=== PATIENT | male | born 1960 | race Caucasian/White ===

== ENCOUNTER 2019-07-07 15:23 | Inpatient (IN) ==
[2019-07-07] MEDS ORDERED: NS 1,000 ML IV ONE ×3 (15:48→20:05)
[2019-07-07] MEDS ORDERED: ROCEPHIN 1 GM in NS 50 ML IV ONE (15:48)
--- NOTE | 2019-07-07 16:31 | Diag Imaging Result Doc PS360 ---
EXAM: US GB < RUQ (LIMITED) INDICATION: PCP sent for eval COMPARISON: None. FINDINGS: There are several layering stones in the gallbladder lumen. There is no evidence of gallbladder wall thickening or pericholecystic fluid. The common bile duct is normal in diameter. Sonographic Cruz's sign was reported to be negative. The liver echotexture is increased diffusely suggesting hepatic steatosis. There is a 1.8 cm hepatic cyst noted incidentally. Portal venous flow is hepatopetal. Much of the pancreas is obscured. The visualized portion is unremarkable. The visualized portion of the aorta and IVC are grossly unremarkable. The right kidney is grossly unremarkable. IMPRESSION: 1.Cholelithiasis. 2.Suggestion of hepatic steatosis. Electronically signed by Nader Peterson 07/07/2019 4:29 PM
--- NOTE | 2019-07-07 16:50 | Diag Imaging Result Doc PS360 ---
EXAM: CHEST-1 VIEW INDICATION: hypotension TECHNIQUE: One view COMPARISON: 07/18/2014 FINDINGS: There is blunting of the left costophrenic angle suggesting a trace effusion. There is a left basilar opacity indicating atelectasis and/or infiltrate. There is minimal linear atelectasis at the right lower lung zone. The cardiomediastinal silhouette and central vasculature are grossly unremarkable. IMPRESSION: Trace left effusion and adjacent atelectasis and/or infiltrate at the left lung base. Electronically signed by Nader Peterson 07/07/2019 4:48 PM
[2019-07-07 18:26] LABS: URINE SOURCE CLEAN CATCH
--- NOTE | 2019-07-07 18:34 | PROVIDER DOCUMENTATION ---
This chart was entered by Amie Escamilla Scribe, acting as scribe for Giovanny Doe MD. HPI-General Adult - General Source: patient - History of Present Illness -Gen Adult Nature of Presenting Problems: Patient is a 59 year old male who presents with loss of appetite, chills and nausea. States symptoms have been present for 3 weeks. Reports being seen by PCP last week and had blood work done. States having an gallbladder US 3 days ago. Denies fever and vomiting. Family reports patient has been hypotensive for the last week. Location of Pain/Injury: reports: none Quality of Pain: reports: none Severity: reports: mild Onset/Duration: reports: other (3 weeks) Timing: reports: still present Context/Activities at Onset: reports: light activity Associated Symptoms: reports: fever/chills (chills), loss of appetite, nausea. denies: vomiting Similar Symptoms Previously?: Yes Recently seen or treated by another doctor?: Yes <Giovanny Doe - Last Filed: 07/07/19 18:34> <Marcella Sweet - Last Filed: 07/07/19 20:19> - General Chief Complaint: SEPSIS ALERT - D Stated Complaint: nausia dr maddox sent over possible gallbladder Time Seen by Provider: 07/07/19 15:44 Allergies/Adverse Reactions: Patient Allergies Allergy/AdvReac Type Severity Reaction Status Date / Time No Known Allergies Allergy Verified 07/07/19 19:57 Home Medications: Home Medication List Medication Instructions Recorded Confirmed Last Taken Type Hydroxyzine HCl 25 mg PO Q6HR PRN 07/18/14 07/07/19 07/17/14 History ROSUVAstatin [Crestor] 10 mg PO QPM 07/18/14 07/07/19 07/17/14 History Amlodipine [Norvasc] 5 mg PO DAILY 07/07/19 07/07/19 Unknown History Folic Acid 1 mg PO DAILY 07/07/19 07/07/19 Unknown History Hydrochlorothiazide 12.5 mg PO DAILY 07/07/19 07/07/19 Unknown History Promethazine [Phenergan] 25 mg PO TID PRN 07/07/19 07/07/19 Unknown History Venlafaxine [Effexor] 75 mg PO DAILY 07/07/19 07/07/19 Unknown History Review of Systems - Adult - REVIEW OF SYSTEMS - ADULT Constitutional: reports: see HPI, chills. denies: fever Eyes: reports: no symptoms reported Ears, Nose, Mouth & Throat: reports: no symptoms reported Cardiovascular: reports: no symptoms reported Respiratory: reports: no symptoms reported Gastrointestinal: reports: see HPI, nausea, poor appetite. denies: abdominal pain, vomiting Genitourinary: reports: no symptoms reported Musculoskeletal: reports: no symptoms reported Integumentary: reports: no symptoms reported Neurological: reports: no symptoms reported Psychiatric: reports: no symptoms reported Endocrine: reports: no symptoms reported Hematologic/Lymphatic: reports: no symptoms reported Allergic/Immunologic: reports: no symptoms reported All Other Systems: Reviewed and Negative <Giovanny Doe - Last Filed: 07/07/19 18:34> Past History - Adult - PAST MEDICAL HISTORY-ADULT Review of Records: reports: Nursing Assessment Review, Medications Reviewed, Social history reviewed & non-contributory. Major Childhood Illnesses: reports: denies history Cardiovascular: reports: HTN, hyperlipidemia Respiratory: reports: denies history Gastrointestinal: reports: GERD Obstetrical/Gynecological: reports: denies history Genitourinary: reports: denies history Musculoskeletal: reports: denies history Neurological: reports: denies history Psychiatric: reports: denies history Endocrine/Immune: reports: denies history Other Conditions: reports: denies history - PRIOR SURGERIES/PROCEDURES Surgical/Procedure History: reports: reviewed, not pertinent, tonsillectomy - IMMUNIZATION STATUS Childhood Immunizations: See Nurse Assessment Flu Vaccine: See Nurse Assessment - FAMILY HISTORY Family History: reviewed, not pertinent - SOCIAL HISTORY Smoking: denies Substance Use: denies Living Situation: family <Giovanny Doe - Last Filed: 07/07/19 18:34> Physical Exam-General - PHYSICAL EXAM-ADULT Initial Vital Signs Reviewed: Yes - CONSTITUTIONAL General Appearance: alert, no apparent distress. negative: lethargic - RESPIRATORY Respiratory: chest non-tender, lungs clear, normal breath sounds. negative: wheezing - CARDIOVASCULAR Cardiovascular: regular rate, rhythm. negative: tachycardia, systolic murmur - GASTROINTESTINAL (ABDOMEN) Abdominal Exam: normal bowel sounds, non tender, soft. negative: guarding, rigid - MUSCULOSKELETAL Extremity: non-tender, normal inspection. negative: pedal edema - SKIN Integumentary: normal color, normal turgor, warm/dry. negative: diaphoresis, pallor - NEUROLOGIC Neurologic: grossly normal. negative: aphasia, facial droop - PSYCHIATRIC Psych/Mental Status: normal mood/affect, normal thought content, normal thought process, oriented x 3. negative: tearful <Giovanny Doe - Last Filed: 07/07/19 18:34> Progress - PLAN OF CARE/RESULTS Progress/Plan/Lab Results: Vital Signs - 8 hr 07/07/19 15:33 Temperature 97.5 F L Pulse Rate 93 H Respiratory Rate 18 Blood Pressure 74/53 O2 Sat by Pulse Oximetry 88 L Orders Category Date Time Status Cardiac Monitoring DIRECTED Care 07/07/19 15:42 Active IV Insertion ORDERED Care 07/07/19 15:42 Active Notify MD of + Sepsis Screen NOW Care 07/07/19 15:42 Active Notify Physician As Ordered Care 07/07/19 15:42 Active CHEST-1 VIEW [RAD] Stat Exams 07/07/19 15:42 Ordered US GB < RUQ (LIMITED) [US] Stat Exams 07/07/19 15:37 Ordered BLOOD CULTURE [BLDCUL] Stat Lab 07/07/19 15:42 Uncollected CBC WITH ELECTRONIC DIFF [HEME] Stat Lab 07/07/19 15:36 Uncollected CK PROFILE [SP CHEM] Stat Lab 07/07/19 15:36 Uncollected COMPREHENSIVE METABOLIC PANEL [CHEM] Stat Lab 07/07/19 15:36 Uncollected LACTATE, PLASMA [CHEM] Q3H Lab 07/07/19 15:45 Uncollected LACTATE, PLASMA [CHEM] Q3H Lab 07/07/19 18:45 Uncollected LACTATE, PLASMA [CHEM] Q3H Lab 07/07/19 21:45 Uncollected LIPASE [CHEM] Stat Lab 07/07/19 15:37 Uncollected PROTIME WITH INR [COAG] Stat Lab 07/07/19 15:42 Uncollected PTT [COAG] Stat Lab 07/07/19 15:42 Uncollected TROPONIN T HIGH SENSITIVITY Stat Lab 07/07/19 15:42 Uncollected URINALYSIS W/POSS RFLX CULT [URINALYSIS] Stat Lab 07/07/19 15:37 Uncollected Oxygen Device Stat Oth 07/07/19 15:42 Active Result Diagrams: 07/07/19 16:35 - XRAY 1 XRAY Study: Chest Impression: See EMR Report (EXAM: CHEST-1 VIEW INDICATION: hypotension TECHNIQUE: One view COMPARISON: 07/18/2014 FINDINGS: There is blunting of the left costophrenic angle suggesting a trace effusion. There is a left basilar opacity indicating atelectasis and/or infiltrate. There is minimal linear atelectasis at the right lower lung zone. The cardiomediastinal silhouette and central vasculature are grossly unremarkable. IMPRESSION: Trace left effusion and adjacent atelectasis and/or infiltrate at the left lung base. Electronically signed by Nader Peterson 07/07/2019 4:48 PM 07/07/19 1648 Interpreting Physician: Nader Peterson MD Dictated Date/Time: 07/07/19 1647 cc: Giovanny Doe MD; Anthony Maddox MD) - ULTRASOUND (By Radiology) 1 US Study: Gallbladder Impression: See EMR Report ( EXAM: US GB < RUQ (LIMITED) INDICATION: PCP sent for eval COMPARISON: None. FINDINGS: There are several layering stones in the gallbladder lumen. There is no evidence of gallbladder wall thickening or pericholecystic fluid. The common bile duct is normal in diameter. Sonographic Cruz's sign was reported to be negative. The liver echotexture is increased diffusely suggesting hepatic steatosis. There is a 1.8 cm hepatic cyst noted incidentally. Portal venous flow is hepatopetal. Much of the pancreas is obscured. The visualized portion is unremarkable. The visualized portion of the aorta and IVC are grossly unremarkable. The right kidney is grossly unremarkable. IMPRESSION: 1.Cholelithiasis. 2.Suggestion of hepatic steatosis. Electronically signed by Nader Peterson 07/07/2019 4:29 PM 07/07/19 1629 Interpreting Physician: Nader Peterson MD Dictated Date/Time: 07/07/19 1628 cc: Nick Melendez; Anthony Maddox MD) - CHANGE OF SHIFT REPORT (ED Provider) 1 Report Given and Care Transferred to:: Dr Sweet Time of Transfer: 19:00 Items Pending: Labs <Giovanny Doe - Last Filed: 07/07/19 18:34> - PLAN OF CARE/RESULTS Progress/Plan/Lab Results: Vital Signs - 8 hr 07/07/19 15:33 07/07/19 18:05 07/07/19 18:31 Temperature 97.5 F L Pulse Rate 93 H 86 68 Respiratory Rate 18 16 18 Blood Pressure 74/53 76/43 76/39 O2 Sat by Pulse Oximetry 88 L 100 90 L 07/07/19 18:40 Temperature 97.6 F Pulse Rate 69 Respiratory Rate 18 Blood Pressure 84/55 O2 Sat by Pulse Oximetry 90 L Laboratory Results - last 24 hr 07/07/19 07/07/19 07/07/19 16:35 16:35 16:35 WBC 8.96 RBC 4.60 L Hgb 13.1 L Hct 39.5 L MCV 85.9 MCH 28.5 MCHC 33.2 RDW Std Deviation 14.4 Plt Count 63 L MPV 13.7 H Immature Gran % (Auto) 1.6 H Neut % (Auto) 63.6 Lymph % (Auto) 6.[address] [place] % (Auto) 26.3 H Eos % (Auto) 0.9 Baso % (Auto) 0.7 Immature Gran # (Auto) 0.14 H Neut # (Auto) 5.70 Lymph # (Auto) 0.[address] [place] # (Auto) 2.36 H Eos # (Auto) 0.08 Baso # (Auto) 0.06 Segmented Neutrophils 71 Band Neutrophils 1 Lymphocytes 6 L Monocytes 14 H Eosinophils 2 Atypical Lymphocytes 6.0 PT 18.1 H INR 1.47 PTT (Actin FS) 39.0 Sodium 125 L Potassium 3.8 Chloride 91 L Carbon Dioxide 18 L Anion Gap 16 BUN 25 H Creatinine 1.2 Estimated GFR/1.73 m2 > 60 BUN/Creatinine Ratio 21 Glucose 135 H Calculated Osmolality 258 Calcium 7.5 L Total Bilirubin 1.87 H AST 35 H ALT 23 Alkaline Phosphatase 184 H Creatine Kinase 18 L Troponin T High Sens Total Protein 5.0 L Albumin 2.3 L Globulin 2.7 Albumin/Globulin Ratio 0.9 Lipase 8 L Plasma Lactate Urine Source Urine Color Urine Turbidity Urine pH Ur Specific [place] Urine Protein Ur Glucose (Stick) Ur Ketones (Stick) Urine Blood Urine Nitrite Urine Bilirubin Urobilinogen Dipstick Urine Leukocytes Urine WBC (Auto) Urine RBC (Auto) U Epithel Cells (Auto) Urine Bacteria (Auto) Urine Crystals Small Round Cells Urine Casts Urine Yeast-like Cells 07/07/19 07/07/19 07/07/19 16:35 16:35 17:22 WBC RBC Hgb Hct MCV MCH MCHC RDW Std Deviation Plt Count MPV Immature Gran % (Auto) Neut % (Auto) Lymph % (Auto) [place] % (Auto) Eos % (Auto) Baso % (Auto) Immature Gran # (Auto) Neut # (Auto) Lymph # (Auto) [place] # (Auto) Eos # (Auto) Baso # (Auto) Segmented Neutrophils Band Neutrophils Lymphocytes Monocytes Eosinophils Atypical Lymphocytes PT INR PTT (Actin FS) Sodium Potassium Chloride Carbon Dioxide Anion Gap BUN Creatinine Estimated GFR/1.73 m2 BUN/Creatinine Ratio Glucose Calculated Osmolality Calcium Total Bilirubin AST ALT Alkaline Phosphatase Creatine Kinase Troponin T High Sens 7 Total Protein Albumin Globulin Albumin/Globulin Ratio Lipase Plasma Lactate 3.0 H Urine Source CLEAN CATCH Urine Color YELLOW Urine Turbidity CLEAR Urine pH 5.5 Ur Specific [place] 1.020 Urine Protein TRACE A Ur Glucose (Stick) NEGATIVE Ur Ketones (Stick) NEGATIVE Urine Blood NEGATIVE Urine Nitrite NEGATIVE Urine Bilirubin SMALL A Urobilinogen Dipstick 8 A Urine Leukocytes NEGATIVE Urine WBC (Auto) <10 Urine RBC (Auto) <10 U Epithel Cells (Auto) <10 Urine Bacteria (Auto) NEGATIVE Urine Crystals NONE SEEN Small Round Cells NONE SEEN Urine Casts NONE SEEN Urine Yeast-like Cells NONE SEEN Orders Category Date Time Status Cardiac Monitoring DIRECTED Care 07/07/19 15:42 Active IV Insertion ORDERED Care 07/07/19 15:42 Completed Notify MD of + Sepsis Screen NOW Care 07/07/19 15:42 Active Notify Physician As Ordered Care 07/07/19 15:42 Active CHEST-1 VIEW [RAD] Stat Exams 07/07/19 15:42 Completed US GB < RUQ (LIMITED) [US] Stat Exams 07/07/19 15:37 Completed BLOOD CULTURE [BLDCUL] Stat Lab 07/07/19 16:55 Results CBC WITH ELECTRONIC DIFF [HEME] Stat Lab 07/07/19 16:35 Completed CK PROFILE [SP CHEM] Stat Lab 07/07/19 16:35 Completed COMPREHENSIVE METABOLIC PANEL [CHEM] Stat Lab 07/07/19 16:35 Completed LACTATE, PLASMA [CHEM] Lab 07/07/19 16:35 Completed LACTATE, PLASMA [CHEM] Lab 07/07/19 18:45 Uncollected LACTATE, PLASMA [CHEM] Lab 07/07/19 21:45 Uncollected LIPASE [CHEM] Stat Lab 07/07/19 16:35 Completed PROTIME WITH INR [COAG] Stat Lab 07/07/19 16:35 Completed PTT [COAG] Stat Lab 07/07/19 16:35 Completed TROPONIN T HIGH SENSITIVITY Stat Lab 07/07/19 16:35 Completed URINALYSIS W/POSS RFLX CULT [URINALYSIS] Stat Lab 07/07/19 17:22 Completed URINE MANUAL MICROSCOPIC [URINALYSIS] Stat Lab 07/07/19 17:22 Completed 0.9% Sodium Chloride Inj [Ns] 1,000 ml Med 07/07/19 15:48 Discontinued IV 999 mls/hr 0.9% Sodium Chloride Inj [Ns] 1,000 ml Med 07/07/19 18:32 Discontinued IV 999 mls/hr 0.9% Sodium Chloride Inj [Ns] 1,000 ml Med 07/07/19 20:05 Active IV 999 mls/hr CefTRIAXONE [Rocephin] 1 gm Med 07/07/19 15:48 Discontinued 0.9% Sodium Chloride Inj [Ns] 50 ml IV NOW O2 Per Protocol Stat Oth 07/07/19 18:33 Active Oxygen Device Stat Oth 07/07/19 15:42 Active Result Diagrams: 07/07/19 16:35 07/07/19 16:35 - CHANGE OF SHIFT REPORT (ED Provider) 2 Report Given and Care Transferred to:: Assumed care of patient at shift change from Dr. Doe. Time of Transfer: 19:00 Items Pending: Labs, Other (dispo) <Marcella Sweet - Last Filed: 07/07/19 20:19> Departure - Departure Certified Medical Emergency: Emergent <Giovanny Doe - Last Filed: 07/07/19 18:34> - Departure Date of Disposition Decision: 07/07/19 Time of Disposition Decision: 20:19 Certified Medical Emergency: Emergent - Critical Care Note This patient required my direct & personal management of CC.: No <Marcella Sweet - Last Filed: 07/07/19 20:19> - Departure DIAGNOSIS: Hypoxemia LLL pneumonia Qualifiers: Pneumonia type: due to unspecified organism Qualified Code(s): J18.1 - Lobar pneumonia, unspecified organism Sepsis Qualifiers: Sepsis type: sepsis due to unspecified organism Sepsis acute organ dysfunction status: unspecified Qualified Code(s): A41.9 - Sepsis, unspecified organism Cholelithiasis Qualifiers: Cholelithiasis location: gallbladder Cholecystitis acuity: acute Disposition: ADMITTED INPATIENT 09 Condition: Stable Referrals and Follow-Ups: Anthony Maddox MD [Primary Care Provider] - Attestation - Physician/ JOHN Attestation The physician spent face to face time with patient:: Yes Advanced Practice Provider documentation review:: Supervising physician onsite and consulted in the evaluation and care of this patient. The physician did have a face to face encounter with the patient. <Giovanny Doe - Last Filed: 07/07/19 18:34> - Physician/ JOHN Attestation Patient care was provided by Advanced Practice Provider:: No The physician spent face to face time with patient:: Yes Advanced Practice Provider documentation review:: Supervising physician onsite and consulted in the evaluation and care of this patient. The physician did have a face to face encounter with the patient. <Marcella Sweet - Last Filed: 07/07/19 20:19> This chart was documented by the indicated scribe, (Amie Escamilla Scribe) and accurately reflects the services I performed and decisions made by me, Giovanny Doe MD, as attested by the provider's signature.
[2019-07-07 18:42] LABS: BILIRUBIN URINE SMALL (NEGATIVE); BLOOD URINE NEGATIVE (NEGATIVE); COLOR YELLOW; GLUCOSE URINE NEGATIVE (NEGATIVE); KETONE URINE NEGATIVE (NEGATIVE); LEUKOCYTES URINE NEGATIVE (NEGATIVE); NITRITE URINE NEGATIVE (NEGATIVE); PH URINE 5.5; PROTEIN URINE TRACE mg/dL (NEGATIVE); TURBIDITY URINE CLEAR (CLEAR); UROBILINOGEN URINE 8 mg/dL (NORMAL)
[2019-07-07 18:51] LABS: UR EPITHELIAL CELLS <10 /HPF (<10); URINE BACTERIA NEGATIVE /HPF; URINE RBC <10 /HPF (<10); URINE WBC <10 /HPF (<10)
[2019-07-07 18:54] LABS: BASO# 0.06 X1000 (0.0-0.2); BASO% 0.7 % (0.0-0.8); EOS# 0.08 X1000 (0.0-0.7); EOS% 0.9 % (0.0-10.0); HEMATOCRIT 39.5 % (42.0-52.0); HEMOGLOBIN 13.1 g/dL (14.0-18.0); IMM GRAN# 0.14 X1000 (0.0-0.04); IMM GRAN% 1.6 % (0.0-0.5); LYMPH# 0.62 X1000 (1.2-3.4); LYMPH% 6.9 % (20.5-51.1); MCH 28.5 PG (27-31); MCHC 33.2 g/dL (33-37); MCV 85.9 FL (81-99); MONO# 2.36 X1000 (0.11-0.59); MONO% 26.3 % (1.7-9.3); MPV 13.7 FL (7.4-10.4); NEUT% 63.6 % (42.2-75.2); PLT 63 X1000 (130-400); RDW 14.4 % (11.5-14.5); WBC 8.96 X1000 (4.8-10.8)
[2019-07-07 18:59] LABS: AGAP 16; ALB/GLOB RATIO 0.9; ALBUMIN 2.3 g/dL (3.5-5.0); ALKALINE PHOSPHATASE 184 U/L (32-122); BUN 25 mg/dL (8-22); CALCIUM 7.5 mg/dL (8.8-10.2); CHLORIDE 91 mmol/L (98-107); CK PROFILE 18 U/L (24-204); COSMO 258; CREATININE 1.2 mg/dL (0.7-1.2); ESTIMATED GFR > 60; GLUCOSE 135 mg/dL (70-104); GOT 35 U/L (10-34); GPT 23 U/L (10-44); LIPASE 8 U/L (13-60); POTASSIUM 3.8 mmol/L (3.5-5.1); SODIUM 125 mmol/L (136-145); TCO2 18 mmol/L (25-35); TOTAL BILIRUBIN 1.87 mg/dL (0.20-1.00)
[2019-07-07 19:04] LABS: INR 1.47; PROTIME 18.1 Seconds (11.0-16.0)
[2019-07-07 19:29] LABS: URINE CASTS NONE SEEN; URINE CRYSTALS NONE SEEN; URINE SMALL ROUND CELLS NONE SEEN; URINE YEAST NONE SEEN
[2019-07-07 19:57] LABS: BANDS 1 % (0-1); EOS 2 % (1-10); LYMPHS 6 % (21-51); MONO 14 % (1-9); SEGS 71 % (42-75)
--- NOTE | 2019-07-07 22:06 | HISTORY AND PHYSICAL ---
REASON FOR ADMISSION: Hypotension for the last couple of days and lethargy for 2 to 3 weeks. HISTORY OF PRESENT ILLNESS: Mr. Eliot Sánchez is a 59-year-old man with past medical history of hypertension, hyperlipidemia, possible peripheral arterial disease, depression. He reports that for the last 3 weeks he has been feeling weak with intermittent chills but no fever. He also reports nausea and decreased appetite. A week later he developed a cough, nonproductive but not associated shortness of breath. He denies emphatically any fever. He came in today primarily because he was feeling weak and lethargic, and he noticed that his blood pressure for the last couple of days has been 70/30 systolic. I did review his old records from before, and I did notice that he had had a similar problem like this in 2015. This leads me to believe that this might be something chronic in nature. The patient denies any vomiting, diarrhea or blood loss. The patient denies any recent change in home medications, but oddly enough, he has been taking his antihypertensives despite having low blood pressure. No PND, orthopnea, chest pain, or additional cardiorespiratory complaints. No abdominal pain. REVIEW OF SYSTEMS: Twelve-system review was done. Positive findings per HPI. Patient admits to having constipation. ALLERGIES: No allergies. HOME MEDICATIONS: Include the following: Norvasc 5 mg daily, folic acid 1 mg daily, hydrochlorothiazide 12.5 mg daily, hydroxyzine 25 mg q.6 p.r.n., Phenergan 25 mg t.i.d. p.r.n., Crestor 10 mg daily, Effexor 75 mg daily. SOCIAL HISTORY: Lives with . Does not smoke. Drinks half a bottle of wine every day. Last drink was 2 weeks ago. FAMILY HISTORY: Notable for heart disease and diabetes in first-degree relatives. SURGICAL HISTORY: Had tonsillectomy and sinus surgery. LABORATORY WORK: White count 8000, hemoglobin and hematocrit 13 and 39, platelets 63,000. Sodium is 125, BUN is 25, creatinine 1.2, glucose 135, calcium 7.5, total bilirubin is 1.8, AST 35, ALT 23, alkaline phosphatase 184, lactate 3.0. PT is 18. INR is 1.4, small bilirubin, positive urobilinogen. IMAGING: Abdominal ultrasound ordered by primary care provider showed cholelithiasis and hepatic steatosis. There is no actual mention of splenic size. Chest film showed trace left effusion with adjacent left lower lobe infiltrate PHYSICAL EXAMINATION: VITAL SIGNS: Temperature 97.6 degrees, heart rate 69, respiratory rate 18, blood pressure is 84/55, and O2 sats 90% on 2 L. GENERAL: A middle-aged, man who is acutely ill looking. He is alert and oriented to person and time. Normal mood and affect. HEAD: Normocephalic, atraumatic. EYES: KELSY, EOMI. He is anicteric. Not pale. ENT EXAM: Grossly normal. NECK: Supple. No JVD or carotid bruit. No thyromegaly. CHEST: Bibasilar crepitations heard. No wheezes. Decreased entry in both lung mao. CARDIOVASCULAR: First and second sounds heard. No gallops or rubs. Regular. ABDOMEN: Full, soft, nontender. No organomegaly. Bowel sounds are normal. RECTAL EXAM: Deferred at this time. EXTREMITIES: Diminished pulses bilaterally, but they are symmetrical, regular. No edema, clubbing or peripheral cyanosis. NEUROLOGIC: No gross focal deficits. No tremors. SKIN: Intact. No breakdown, lesion or erythema. SKIN EXAM: Grossly normal. ASSESSMENT: 1. Sepsis, probably secondary to pneumonia. 2. Thrombocytopenia, etiology yet to be determined. Cannot rule out the toxic effects of alcoholic ingestion. 3. Hyponatremia. ? hydrochlorothiazide. Cannot rule out adrenal insufficiency in view of chronic hypotension. 4. Left lower lobe pneumonia. 5. Incidental cholelithiasis. 6. Persistent hypotension probably secondary to unnecessary antihypertensives. Cannot rule out diuretic effect and the possibility of adrenal insufficiency. PLAN: We will aggressively resuscitate patient per sepsis protocol. We will await cultures. Continue with antibiotic regimen for community-acquired pneumonia. We will consult cable driller in view of thrombocytopenia. Ordered a CBC to be repeated in blue top to rule out platelet clumping. There is no comment on splenic size, which could have explained sequestration as a cause. If thrombocytopenia persists, consider doing abdomen CT to rule out not just only splenomegaly, but if there are any underlying liver problems or lymphoproliferative disorder. Of note, I am concerned that this patient may have underlying liver issues based on the fact that not only are the transaminases slightly elevated, but the patient's PT/INR is also elevated suggesting some liver dysfunction. Albumin is also low. We will do workup for hyponatremia, which includes urine osmolality, TSH, amongst other things. Discontinue hydrochlorothiazide. Continue antihypertensives. I have ordered a cortisol level in the morning. This needs to be followed. I have ordered a CT of the thorax because the patient 5 years ago was listed as having COPD. He has also worked 25 years, exposed to chemicals so I am going to order a CT to rule out interstitial lung disease. Also we will do anemia workup to further evaluate thrombocytopenia. Patient needs to be observed closely for alcohol withdrawal even though he states that 2 weeks ago was his last drink. cc: MD Anthony Molina MD
[2019-07-07] MEDS ORDERED: NS 1,000 ML IV SCH (22:43)
[2019-07-07] MEDS ORDERED: M.V.I.-12 10 ML, FOLIC ACID 1 MG, MAGNESIUM SULFATE 1 GM, THIAMINE 100 MG in NS 1,000 ML IV ONE (22:43)
[2019-07-07] MEDS ORDERED: DULCOLAX PO ONE (22:43)
[2019-07-07] MEDS ORDERED: LACTULOSE PO PRN (22:43)
[2019-07-07 23:03] LABS: RETIC% 3.47 % (0.8-2.1); RETIC-HE 29.5 PG (28.2-36.6)
[2019-07-07 23:24] LABS: INR 1.4; PROTIME 17.4 Seconds (11.0-16.0)
[2019-07-07 23:25] LABS: PTT 40.5 Seconds (22.3-41.8)
[2019-07-07 23:37] LABS: BASO# 0.04 X1000 (0.0-0.2); BASO% 0.5 % (0.0-0.8); EOS# 0.11 X1000 (0.0-0.7); EOS% 1.3 % (0.0-10.0); HEMATOCRIT 37.9 % (42.0-52.0); HEMOGLOBIN 12.7 g/dL (14.0-18.0); IMM GRAN# 0.05 X1000 (0.0-0.04); IMM GRAN% 0.6 % (0.0-0.5); LYMPH% 7.3 % (20.5-51.1); MCHC 33.5 g/dL (33-37); MCV 86.5 FL (81-99); MONO# 1.72 X1000 (0.11-0.59); NEUT# 5.68 X1000 (1.4-6.5); NEUT% 69.3 % (42.2-75.2); RBC 4.38 XMIL (4.7-6.1); RDW 14.6 % (11.5-14.5)
[2019-07-07 23:38] LABS: PLT 63 X1000 (130-400)
[2019-07-07] MEDS: CRESTOR PO SCH (23:59)
[2019-07-08 00:01] LABS: BASO# 0.03 X1000 (0.0-0.2); BASO% 0.4 % (0.0-0.8); EOS# 0.06 X1000 (0.0-0.7); EOS% 0.7 % (0.0-10.0); HEMATOCRIT 39.4 % (42.0-52.0); IMM GRAN# 0.08 X1000 (0.0-0.04); LYMPH% 8.5 % (20.5-51.1); MCH 28.6 PG (27-31); MCV 86.8 FL (81-99); MPV 12.2 FL (7.4-10.4); NEUT# 5.96 X1000 (1.4-6.5); NEUT% 72.4 % (42.2-75.2); PLT 67 X1000 (130-400); RBC 4.54 XMIL (4.7-6.1); RDW 14.6 % (11.5-14.5); WBC 8.23 X1000 (4.8-10.8)
[2019-07-08] MEDS: DOXYCYCLINE 100 MG in NS 250 ML IV SCH ×3 (00:02→22:20)
[2019-07-08 00:16] LABS: AGAP 14; ALB/GLOB RATIO 0.8; ALBUMIN 2.2 g/dL (3.5-5.0); ALKALINE PHOSPHATASE 175 U/L (32-122); BUN 20 mg/dL (8-22); CHLORIDE 101 mmol/L (98-107); CK PROFILE 12 U/L (24-204); COSMO 272; CREATININE 1.1 mg/dL (0.7-1.2); ESTIMATED GFR > 60; GLUCOSE 128 mg/dL (70-104); GOT 33 U/L (10-34); GPT 22 U/L (10-44); POTASSIUM 3.8 mmol/L (3.5-5.1); SODIUM 134 mmol/L (136-145); TCO2 19 mmol/L (25-35); TOTAL BILIRUBIN 1.65 mg/dL (0.20-1.00); TOTAL PROTEIN 4.8 g/dL (6.3-8.3)
[2019-07-08] MEDS ORDERED: CALCIUM GLUCONATE 1 GM in NS 50 ML IV ONE (00:39)
[2019-07-08] MEDS: TYLENOL PO PRN (01:08)
[2019-07-08] MEDS: DUONEB (A & A) INH SCH ×4 (03:45→22:06)
--- NOTE | 2019-07-08 07:11 | Diag Imaging Result Doc PS360 ---
EXAM: CT THORAX W/O CONTRAST 07/07/2019 HISTORY: PNA VS ILD TECHNIQUE: This exam was performed using automated exposure control, adjustment of mA or kV according to patient size, and/or use of iterative reconstruction technique. COMMENT: There is apical pleural thickening and fibrosis particularly on the left. There are bilateral pleural effusions, slightly larger on the left than the right. There is some atelectasis or pneumonia present in both lower lobes and the right middle lobe. Some of this is presumably due to compression from the effusions. There is platelike atelectasis in the lingula. There is a somewhat irregular nodule, measuring over 7 mm in diameter, present in the left upper lobe on image 47. This may be faintly calcified. There is some groundglass opacity surrounding the nodule. There are no previous studies available for comparison. Follow-up examinations are recommended in this regard. There are calcified nodes in the aorticopulmonary window and both catina as well as the subcarina. The aorta is not distended. There is atherosclerotic calcification in the left anterior descending coronary artery. There is a lucent lesion in the posterior right hepatic lobe measuring 2.2 cm in diameter. This may be a cyst, the CT density being less than 8 Hounsfield units, however the borders are somewhat indistinct. There is a smaller lucency anteriorly on image 114. There are numerous small calcified gallstones. Further evaluation of the abdomen with intravenous contrast may be desirable. The regional skeleton appears to be intact. IMPRESSION: 1. Bilateral pleural effusions. 2. Bibasilar atelectasis versus pneumonia. 3. Nonspecific left upper lobe nodule. Follow-up imaging is recommended. 4. Lucent hepatic lesions of uncertain significance. Advise further evaluation with contrast. 5. Cholelithiasis. Other nonacute findings as described above. Electronically signed by Rainer Edmonds 07/08/2019 7:08 AM
[2019-07-08 08:40] LABS: BASO# 0.03 X1000 (0.0-0.2); BASO% 0.4 % (0.0-0.8); EOS# 0.04 X1000 (0.0-0.7); EOS% 0.5 % (0.0-10.0); HEMATOCRIT 33.6 % (42.0-52.0); HEMOGLOBIN 10.9 g/dL (14.0-18.0); IMM GRAN# 0.05 X1000 (0.0-0.04); IMM GRAN% 0.6 % (0.0-0.5); LYMPH# 0.68 X1000 (1.2-3.4); LYMPH% 8.8 % (20.5-51.1); MCH 28.2 PG (27-31); MCHC 32.4 g/dL (33-37); MCV 86.8 FL (81-99); MONO# 1.71 X1000 (0.11-0.59); NEUT# 5.26 X1000 (1.4-6.5); NEUT% 67.7 % (42.2-75.2); PLT 56 X1000 (130-400); RBC 3.87 XMIL (4.7-6.1); RDW 14.5 % (11.5-14.5); WBC 7.77 X1000 (4.8-10.8)
[2019-07-08 08:44] LABS: AGAP 13; BUN 19 mg/dL (8-22); CALCIUM 7.5 mg/dL (8.8-10.2); CHLORIDE 100 mmol/L (98-107); COSMO 268; CREATININE 0.9 mg/dL (0.7-1.2); ESTIMATED GFR > 60; GLUCOSE 153 mg/dL (70-104); POTASSIUM 3.5 mmol/L (3.5-5.1); SODIUM 131 mmol/L (136-145); TCO2 18 mmol/L (25-35); TOTAL IRON 22 ug/dL (53-167)
[2019-07-08] MEDS: EFFEXOR PO SCH (09:11)
[2019-07-08] MEDS: FOLIC ACID PO SCH (09:11)
[2019-07-08] MEDS ORDERED: NS 500 ML IV ONE (09:19)
[2019-07-08 09:20] LABS: FERRITIN 1530 ng/mL (30-400)
[2019-07-08] MEDS: NS 1,000 ML IV SCH ×2 (10:26→21:34)
--- NOTE | 2019-07-08 11:28 | PROGRESS NOTE ---
DATE: 07/08/2019 SUBJECTIVE: As per the patient, he has been sick for the past 3 weeks. It looks like he was having hypotension, but he was still taking his blood pressure medication, amlodipine and hydrochlorothiazide, and apparently he has been lethargic. He has been coughing on and off, but apparently not that much, and he has some abdominal discomfort, and generalized weakness. As per the patient and the , which is at the bedside, he is not moving too much for the last 2 to 3 weeks. On the other hand, since then, he has not been drinking alcohol. He drinks on a daily basis at least one-half bottle and even 1 bottle of wine every day, it looks like during the night, also as per the patient, he does not urinate during the day too much, but mostly during the night, but he is taking his hydrochlorothiazide also at nighttime. Ultrasound showed cholelithiasis. He has multiple stones in the gallbladder lumen and also hepatic steatosis. CT scan of the chest showed bilateral pleural effusion, a bibasilar atelectasis versus pneumonia, nonspecific left upper lobe nodule, and probably we need to do a CT scan in the future to monitor this nodule, but also, he has some lucent hepatic lesions of uncertain significance, and we will do a CT with contrast in the future here. His blood pressure upon admission was in the 70s, after fluid increased to the 100s, and actually at 4 a.m. was 139/72, now dropped to the high 80s. I will bolus him with 500 mL of fluid, and I will continue with IV fluids for now. OBJECTIVE: Vital Signs: Temperature 97.9 degrees, pulse 90, respiratory rate 15, blood pressure 88/50, oxygen saturation 95% on 4 liters of nasal cannula. HEENT: Head normocephalic. No trauma. PERRLA. Neck: Supple. No JVD. No masses. Central trachea. Chest: Decreased breath sounds at the bases with some crepitus bilaterally. Abdomen: Soft. It is protuberant. I would say that it is slightly to moderately distended. Positive bowel sounds. It is nontender to palpation. Extremities: No edema, no clubbing, no cyanosis. Neurological: The patient is awake, alert. He is oriented. No focal deficits. LABORATORY: WBC 7.7, hemoglobin 10.9, hematocrit 33.6, platelets 56,000. Sodium 131, potassium 3.5, chloride 100, bicarbonate 18, BUN 19, creatinine 0.9, glucose 153, calcium 7.5, iron 22, ferritin is 1530. ASSESSMENT AND PLAN: 1. Sepsis, probably due to pneumonia. The blood pressure improved, but now it is a little bit low in the high 80s. Kidney function seems to be better. He came in with a creatinine 1.2, now is 0.9. We will continue with intravenous fluids. We will continue with antibiotics. I will get a CT of the abdomen with contrast, probably tomorrow. The patient seems to be feeling a little bit better. 2. Thrombocytopenia, probably this is chronic. I do believe this is related to alcohol abuse. We will monitor this closely. Probably, he will need to follow up as an outpatient with Hematology/Oncology Department since he is also anemic. 3. Likely left lower lobe pneumonia. Continue with antibiotics. 4. Hyponatremia. He has been using hydrochlorothiazide at home. Cortisol level is fine. I will continue with normal saline for now. I will stop the hydrochlorothiazide. I am not quite sure if he needs to take the medication anymore. 5. Cholelithiasis. We will monitor for now. No abdominal pain. 6. Hypotension, even though this patient was having low blood pressure at home, he was taking his blood pressure medication. I talked to him and the at the bedside and instructed them to stop it if he is having these kind of problems. I wonder if he needs to take blood pressure medication though. 7. Nonspecific left upper lobe nodule. Followup imaging is recommended in 4 to 6 weeks. 8. Lucent hepatic lesions of uncertain significance. I will try to do a CT scan of the abdomen and pelvis during this hospitalization. cc: Mendez Morales MD
[2019-07-08] MEDS: CARAFATE LIQUID PO PRN (16:32)
[2019-07-08] MEDS: SODIUM CHLORIDE 0.9% INJ SCH (16:33)
[2019-07-08] MEDS: PROTONIX IV SCH (16:33)
[2019-07-08] MEDS ORDERED: LEVOPHED 8 MG in D5 1/2 NS 250 ML IV SCH (16:45)
[2019-07-08] MEDS ORDERED: ROCEPHIN 1 GM in NS 50 ML IV SCH (17:00)
--- NOTE | 2019-07-08 17:54 | HEMO/ONC CONSULTATION ---
DATE: 07/08/2019 REASON FOR CONSULTATION: Thrombocytopenia. HISTORY OF PRESENT ILLNESS: Mr. Sánchez is a 59-year-old male with a past history of hypertension, hyperlipidemia, PAD, and depression who reports for the last 3 weeks that he has been feeling weak with nausea and a decreased appetite. He then developed a cough, but denies dyspnea or phlegm. He denies any fever. He came to the ER yesterday stating that he noticed for the last 3 days that his blood pressure was 70/30. The patient denies vomiting, diarrhea, or blood loss. He denies any recent changes to his medical history, home medications. The patient states he has been taking his prescribed antihypertensives despite having low blood pressure. He denies any chest pain. This afternoon he is being transferred to the ICU to be on pressors due to persistent hypotension PAST MEDICAL HISTORY: Includes hypertension, hyperlipidemia, PAD, and depression. PAST SURGICAL HISTORY: Tonsillectomy and sinus surgery. SOCIAL HISTORY: The patient does not smoke. He states he drinks a half a bottle of wine every day. His last drink was 2 weeks ago. ALLERGIES: No known drug allergies. HOME MEDICATIONS: Include Norvasc, folic acid, hydrochlorothiazide, hydroxyzine, Phenergan, Crestor, and Effexor. REVIEW OF SYSTEMS: This morning, the patient had no pertinent complaints. PHYSICAL EXAMINATION: Vital Signs: Temperature 97.7 degrees, pulse rate 112, respiratory rate 25, pressure 98/54, O2 saturation 95% on room air. The patient is in 0/10 pain. General: The patient was in no acute distress. He appeared comfortable. HEENT: Sclera anicteric. PERRLA. Oral mucosa dry. Cardiovascular: Normal S1, S2. Heart rate and rhythm regular. Respiratory: Lung sounds are clear. Normal respiratory effort. Abdomen: Mildly protuberant, soft, nontender. No hepatosplenomegaly noted. Bowel sounds are normal. Extremities: No lower extremity edema noted. Lymphatic: No lymph nodes noted to neck, axilla area. Neurological: Awake, alert, and oriented x3. No focal motor deficits noted. LABORATORY: WBC 7.77, hemoglobin 10.9, hematocrit 33.6, platelet count 56,000, reticulocyte count 3.47. Sodium 131, potassium 3.5, calcium 7.5. Iron 22, ferritin 1,530. Total bilirubin 1.65, alkaline phosphatase 175, LDH 196, plasma lactate 2.7. Vitamin B12 622, folate 19.9. TSH 1.42. Cortisol 24.8. RADIOLOGY: Chest CT: 1. Bilateral pleural effusions. 2. Bibasilar atelectasis versus pneumonia. 3. Nonspecific left upper lobe nodule. 4. Lucent hepatic lesions of uncertain significance. 5. Cholelithiasis. Chest x-ray: Trace left effusion and adjacent atelectasis and/or infiltrate at the left lung base. Abdominal ultrasound: 1. Cholelithiasis. 2. Suggestion of hepatic steatosis. We will ask for spleen size if available. ASSESSMENT: 1. Sepsis, probably secondary to pneumonia. 2. Thrombocytopenia, etiology undetermined. 3. Hypotension. PLAN: Regarding the patient's thrombocytopenia, we have added a few more labs to evaluate. Continue medical management for pneumonia and hypotension. Chronic alcohol use can certainly be a contributor to thrombocytopenia. We do request radiology measure his spleen, if that is available on his recent abdominal ultrasound. We will continue to monitor and evaluate as the patient's progress pans out. Dictated by JANNETTE Johnson for Laron Brewster MD Patient seen and examined. Thrombocytopenia multifactorial. Appears to be due to peripheral destruction. Don't think it is DIC at this time. Evaluate spleen size. Labs ordered. Will follow with you. Thanks. Laorn Brewster MD cc: Laron Brewster MD [facility]
--- NOTE | 2019-07-08 20:23 | Diag Imaging Result Doc PS360 ---
EXAM: CHEST-PORTABLE 07/08/2019 HISTORY: SOB TECHNIQUE: AP portable at 2013 COMMENT: There is alveolar opacity in the left lower lobe which is worse than on 07/07/2019. There is also ill-defined opacity over the right lower lobe. IMPRESSION: Pneumonia particularly in the left lower lobe. Electronically signed by Rainer Edmonds 07/08/2019 8:21 PM
[2019-07-08] MEDS ORDERED: ALBUMIN 25% IV ONE (20:40)
[2019-07-08] MEDS ORDERED: LASIX IV ONE (20:41)
[2019-07-08] MEDS: LOVENOX SUBQ SCH ×3 (20:50→21:51)
[2019-07-08] MEDS: CRESTOR PO SCH (20:50)
[2019-07-08] MEDS: ATIVAN IV PRN (22:20)
[2019-07-09] MEDS: DUONEB (A & A) INH SCH ×4 (03:39→22:57)
[2019-07-09] MEDS: TYLENOL PO PRN ×2 (04:59→20:33)
[2019-07-09 05:50] LABS: BASO# 0.04 X1000 (0.0-0.2); BASO% 0.5 % (0.0-0.8); EOS# 0.07 X1000 (0.0-0.7); EOS% 0.8 % (0.0-10.0); HEMATOCRIT 39.6 % (42.0-52.0); HEMOGLOBIN 13.2 g/dL (14.0-18.0); IMM GRAN# 0.06 X1000 (0.0-0.04); IMM GRAN% 0.7 % (0.0-0.5); LYMPH# 0.54 X1000 (1.2-3.4); LYMPH% 6.6 % (20.5-51.1); MCH 28.7 PG (27-31); MCHC 33.3 g/dL (33-37); MCV 86.1 FL (81-99); MONO# 2.36 X1000 (0.11-0.59); MONO% 28.6 % (1.7-9.3); MPV 13.2 FL (7.4-10.4); NEUT# 5.17 X1000 (1.4-6.5); NEUT% 62.8 % (42.2-75.2); PLT 51 X1000 (130-400); RDW 14.9 % (11.5-14.5); WBC 8.24 X1000 (4.8-10.8)
[2019-07-09 06:27] LABS: AGAP 15; ALB/GLOB RATIO 0.9; ALBUMIN 2.6 g/dL (3.5-5.0); ALKALINE PHOSPHATASE 176 U/L (32-122); BUN 13 mg/dL (8-22); CALCIUM 7.9 mg/dL (8.8-10.2); CHLORIDE 101 mmol/L (98-107); COSMO 270; CREATININE 0.8 mg/dL (0.7-1.2); ESTIMATED GFR > 60; GLUCOSE 124 mg/dL (70-104); GOT 31 U/L (10-34); GPT 20 U/L (10-44); POTASSIUM 3.5 mmol/L (3.5-5.1); SODIUM 134 mmol/L (136-145); TCO2 18 mmol/L (25-35); TOTAL BILIRUBIN 1.77 mg/dL (0.20-1.00); TOTAL PROTEIN 5.4 g/dL (6.3-8.3)
[2019-07-09] MEDS ORDERED: ALBUMIN 25% IV ONE (07:22)
[2019-07-09] MEDS ORDERED: LASIX IV ONE (07:22)
--- NOTE | 2019-07-09 07:22 | Diag Imaging Result Doc PS360 ---
EXAM: CHEST-PORTABLE 07/09/2019 HISTORY: dyspnea TECHNIQUE: AP portable at 0520 COMMENT: There is ill-defined opacity present in the left base and to lesser extent over the right hemidiaphragm. There is motion artifact, however considering differences in technique the appearance of the chest has not changed significantly since 07/08/2019. IMPRESSION: Atelectasis versus pneumonia particularly in the left base. Electronically signed by Rainer Edmonds 07/09/2019 7:19 AM
[2019-07-09 07:30] LABS: LYMPHS 10 % (21-51); MONO 19 % (1-9); SEGS 71 % (42-75)
[2019-07-09] MEDS: EFFEXOR PO SCH (08:24)
[2019-07-09] MEDS: ZOSYN 3.375 GM in NS 50 ML IV SCH ×3 (08:24→20:33)
[2019-07-09] MEDS: FOLIC ACID PO SCH (08:24)
[2019-07-09 08:26] LABS: ALLEN TEST YES; BE -5.8 mmoll (-3.0-3.0); BLOOD TYPE ARTERIAL; HCO3-(ACT) 20.4 mmoll (20.0-26.0); METHB 0.6 % (0.0-1.5); O2HB 96.5 % (95.0-99.0); PCO2(98.6) 27 mmHg (35-45); PO2(98.6) 86 mmHg (60-100); SAMPLE BLOOD; SAO2 99.8 % (95.0-100.0); pH(98.6) 7.42 (7.35-7.45)
[2019-07-09 08:27] LABS: MODALITY VENTIMASK
--- NOTE | 2019-07-09 08:35 | PROGRESS NOTE ---
DATE: 07/09/2019 SUBJECTIVE: As per the patient, he is feeling better. His blood pressure was stable during the night. This morning, it is in the 90s. I will give him an extra dose of albumin, and I will give him also a 1-time dose of Lasix. It looks like he has been having good urine output. As per the nurse, 1.2 L in the past 8 hours. Kidney function seems to be stable. He has been hypoxemic. He has pneumonia. I will stop the current antibiotics, and I will put this patient on Zosyn, and I will get the sample processor to evaluate this patient. OBJECTIVE: Vital Signs: Temperature 99.1 degrees, pulse 91, respiratory rate 20, blood pressure 103/61, oxygen saturation 91% on a Venturi mask. HEENT: Head normocephalic. No trauma. PERRLA. Neck: Supple. No JVD. No masses. Central trachea. Chest: Decreased breath sounds at the bases with some crepitus bilaterally and rhonchi at the left base. Abdomen: Soft, slightly protuberant, slightly distended. Positive bowel sounds. Extremities: Trace edema. No clubbing. No cyanosis. Neurological: The patient is awake, alert. He is oriented. No focal deficits. LABORATORY DATA: WBC 8.2, hemoglobin 13.2, hematocrit 39.6, platelets 51,000. Sodium 134, potassium 3.5, chloride 101, bicarbonate 18, BUN 13, creatinine 0.8, glucose 124, calcium 7.9. Total bilirubin 1.7, alkaline phosphatase 176, albumin 2.6. ASSESSMENT AND PLAN: 1. Sepsis due to left lower lobe pneumonia. Blood pressure has been a little bit better compared with yesterday. During the night, it was in the 100s and 110s. At this moment, it is in the 90s. We will continue to monitor this patient in the intensive care unit. We have Levophed as needed. He does have some pulmonary edema. I will give him a dose of albumin, and I will give him some Lasix as well. 2. Pulmonary edema. As above. 3. Thrombocytopenia. Probably, this is chronic. I do believe this is related to alcohol abuse and/or sepsis. Hematology/Oncology on board. 4. Left lower lobe pneumonia. Continue with antibiotics. I have stopped the ceftriaxone and the doxycycline, and I have placed this patient on Zosyn. 5. Hyponatremia. He has been using hydrochlorothiazide at home. Cortisol level is fine. I will continue to monitor this closely. It is stable, but compared with admission, it is much better, increased from 125 to 134. 6. Cholelithiasis. Will monitor for now. 7. Hypotension. Even though he received multiple boluses of normal saline, his blood pressure was borderline low, so he was transferred to the intensive care unit. 8. Alcohol abuse. This patient drinks alcohol every day. Apparently, he stopped drinking 2 weeks ago. He drinks half a bottle to 1 bottle of wine every night. I do believe that helps him to sleep. 9. Nonspecific left upper lobe nodule. Followup imaging is recommended in 4 to 6 weeks, and lucent hepatic lesion of uncertain significance. I will get a CT scan of the abdomen once this patient is a little bit more stable, with contrast to better visualize the lesion. 10. Hypoxemic respiratory failure due to pneumonia and probably some pulmonary edema. CRITICAL CARE TIME: 35 minutes. cc: Mendez Morales MD
[2019-07-09] MEDS: SODIUM CHLORIDE 0.9% INJ SCH (14:07)
[2019-07-09] MEDS: PROTONIX IV SCH (14:07)
--- NOTE | 2019-07-09 17:10 | HEMO/ONC PROGRESS NOTE ---
DATE: 07/09/2019 SUBJECTIVE: This morning the patient was very lethargic and drowsy. Had difficulty waking him up to answer any questions. He appeared comfortable. He was sleeping with a Venturi mask in place. The nurses stated that he had some Ativan last evening. He was becoming a little anxious and having trouble sleeping. Nursing staff states he had no acute events overnight. OBJECTIVE: Vital Signs: Temperature 98.4 degrees, pulse rate 104, respiratory rate 27, blood pressure 110/62, O2 saturation 94%. General: Patient is in no acute distress. HEENT: Sclera is anicteric. PERRLA. Oral mucosa is dry due to oxygen. Cardiovascular: Heart rate and rhythm tachycardic. Respiratory: Decreased breath sounds. Crackles and/or rhonchi noted on the left. Gastrointestinal: Abdomen is soft, slightly protuberant, nontender. Positive bowel sounds. Extremities: Trace edema. LABORATORY: WBCs 8.24, hemoglobin 13.2, hematocrit 39.6, platelet count 51,000. Calcium 7.9, total bilirubin 1.77. Chest x-ray this morning shows atelectasis versus pneumonia, particularly in the left base, remains stable. ASSESSMENT AND PLAN: 1. Sepsis due to left lower lobe pneumonia. The patient continues on appropriate antibiotics. His blood pressure has remained low but stable. He was moved to the ICU in case Levophed was needed. According to the nurses this morning, he had not been given any as of yet. 2. Thrombocytopenia. This is multifactorial. At this time it appears to be peripheral destruction. Does not appear to be DIC. We will continue to follow. 3. Alcohol abuse. The patient drinks alcohol every day, up to a half to 1 bottle of wine every night. This most certainly can contribute to thrombocytopenia. Dictated by JANNETTE Johnson for Laron Brewster MD cc: MD ALEKSANDR Mccullough
--- NOTE | 2019-07-09 20:22 | PULMONOLOGY CONSULTATION ---
DATE: 07/09/2019 REASON FOR CONSULTATION: Respiratory failure. HISTORY OF PRESENT ILLNESS: Mr. Sánchez is a 59-year-old male, never smoker, with history of depression, history of daily alcohol use, who has been feeling poorly for the last several weeks. The patient's reports he has been laying on the couch and eating and sleeping. He was brought to the emergency room with hypotension, chills, nausea, and decreased appetite. He has been evaluated by his primary care physician, and an ultrasound was performed which revealed cholelithiasis without evidence of cholecystitis, along with significant hepatic steatosis. The patient did undergo a CT scan of the thorax, which reveals bilateral pneumonia, trace pleural effusions, a nonspecific nodule in the left upper lobe. PAST MEDICAL HISTORY: 1. History of depression. 2. Dyslipidemia. 3. Hypertension. 4. Status post tonsillectomy. 5. History of erectile dysfunction. SOCIAL HISTORY: The patient drinks on a daily basis. It should be noted that in 2015 he was drinking 2 glasses of wine a day and currently drinks half a bottle a day per report. No tobacco use. Previously used oral tobacco. REVIEW OF SYSTEMS: Notable for fatigue, cough, lethargy, decreased appetite. FAMILY HISTORY: Noncontributory to current presentation. PHYSICAL EXAMINATION: General: Reveals a thin, chronically ill-appearing white male with a BMI of 21.1. Blood pressure 96/64, heart rate 101, respiratory rate 25, oxygen saturation 94% on nasal cannula. HEENT: Pupils are equal and reactive. Oropharynx appears clear. Neck: Supple. Chest: Reveals diminished breath sounds both lung bases. Cardiac: S1, S2. Abdomen: Soft. Extremities: Without edema. LABORATORY DATA: CT scan as per HPI. White blood count 8.24, hemoglobin 13.2, platelet count 51,000. Sodium 134, potassium 3.5, chloride 101, bicarbonate 18, anion gap 15, BUN 13, creatinine 0.8, glucose 124, bilirubin 1.77, alkaline phosphatase 176. IMPRESSION: A 59-year-old with 1. Bilateral aspiration pneumonia. 2. Gastroesophageal reflux. 3. Fatty liver with alcohol use, alcohol abuse suspected. 4. Depression. 5. Thrombocytopenia. RECOMMENDATIONS: 1. Continue broad-spectrum antibiotics. 2. Continue bronchial hygiene. 3. Cautious DVT prophylaxis given thrombocytopenia. 4. Agree with gastric acid suppression. 5. Follow for possible alcohol withdrawal. 6. Consider outpatient counseling for depression/alcoholism if this is not already been pursued. cc: Tan Steele MD
[2019-07-09] MEDS: CRESTOR PO SCH (20:32)
[2019-07-09] MEDS: LOVENOX SUBQ SCH (20:32)
[2019-07-09] MEDS ORDERED: ULTRAM PO ONE (23:51)
[2019-07-10] MEDS: ZOSYN 3.375 GM in NS 50 ML IV SCH ×2 (02:56→07:56)
[2019-07-10] MEDS: DUONEB (A & A) INH SCH ×4 (03:41→21:33)
[2019-07-10 04:25] LABS: ALLEN TEST YES; BE -4.4 mmoll (-3.0-3.0); BLOOD TYPE ARTERIAL; HCO3-(ACT) 21.3 mmoll (20.0-26.0); O2(CT) 13.8 mL/dL (15.0-23.0); PCO2(98.6) 23 mmHg (35-45); PO2(98.6) 51 mmHg (60-100); SAMPLE BLOOD; SAO2 90.7 % (95.0-100.0); THB 10.9 g/dL (11.5-17.4); pH(98.6) 7.49 (7.35-7.45)
[2019-07-10 04:42] LABS: O2HB 89.8 % (95.0-99.0)
[2019-07-10 05:48] LABS: BASO# 0.04 X1000 (0.0-0.2); BASO% 0.5 % (0.0-0.8); EOS# 0.12 X1000 (0.0-0.7); EOS% 1.6 % (0.0-10.0); HEMATOCRIT 34.6 % (42.0-52.0); HEMOGLOBIN 11.5 g/dL (14.0-18.0); IMM GRAN# 0.05 X1000 (0.0-0.04); IMM GRAN% 0.7 % (0.0-0.5); LYMPH# 0.92 X1000 (1.2-3.4); LYMPH% 12.6 % (20.5-51.1); MCH 28.5 PG (27-31); MCHC 33.2 g/dL (33-37); MCV 85.9 FL (81-99); MONO# 1.76 X1000 (0.11-0.59); MONO% 24.2 % (1.7-9.3); MPV 14.1 FL (7.4-10.4); NEUT# 4.39 X1000 (1.4-6.5); NEUT% 60.4 % (42.2-75.2); PLT 42 X1000 (130-400); RBC 4.03 XMIL (4.7-6.1); RDW 14.9 % (11.5-14.5); WBC 7.28 X1000 (4.8-10.8)
[2019-07-10 05:54] LABS: HEMOGLOBIN A1C 6.8 % (4.8-6.0)
[2019-07-10 06:00] LABS: AGAP 11; ALBUMIN 2.3 g/dL (3.5-5.0); ALKALINE PHOSPHATASE 140 U/L (32-122); BUN 12 mg/dL (8-22); CALCIUM 7.4 mg/dL (8.8-10.2); CHLORIDE 102 mmol/L (98-107); COSMO 265; CREATININE 0.8 mg/dL (0.7-1.2); ESTIMATED GFR > 60; GLUCOSE 115 mg/dL (70-104); GOT 34 U/L (10-34); GPT 19 U/L (10-44); MAGNESIUM 2.1 mg/dL (1.5-2.7); PHOSPHORUS 2.1 mg/dL (2.7-4.5); POTASSIUM 3.3 mmol/L (3.5-5.1); SODIUM 132 mmol/L (136-145); TCO2 19 mmol/L (25-35); TOTAL BILIRUBIN 2.08 mg/dL (0.20-1.00); TOTAL PROTEIN 4.7 g/dL (6.3-8.3)
[2019-07-10] MEDS ORDERED: POTASSIUM PHOSPHATE 15 MMOL in NS 250 ML IV ONE (07:22)
--- NOTE | 2019-07-10 07:34 | Diag Imaging Result Doc PS360 ---
EXAM: CHEST-PORTABLE INDICATION: dyspnea TECHNIQUE: One view COMPARISON: 07/09/2019 FINDINGS: There is a small left pleural effusion is approximately stable. Bibasilar interstitial and airspace opacities most compatible with pulmonary edema are approximately stable. There is stable pulmonary venous congestion. No new consolidation is appreciated. Cardiac silhouette is stable. IMPRESSION: Essentially stable chest. Electronically signed by Nader Peterson 07/10/2019 7:32 AM
[2019-07-10] MEDS ORDERED: VANCOMYCIN IV PER PHARMACY MISC SCH (08:00)
[2019-07-10] MEDS: EFFEXOR PO SCH (08:01)
[2019-07-10] MEDS: FOLIC ACID PO SCH (08:01)
[2019-07-10] MEDS ORDERED: ALBUMIN 25% IV ONE (08:25)
[2019-07-10 08:26] LABS: MODALITY CANNULA
[2019-07-10] MEDS ORDERED: VANCOMYCIN 1,900 MG in NS 500 ML IV ONE (09:00)
--- NOTE | 2019-07-10 09:03 | PROGRESS NOTE ---
DATE: 07/10/2019 ADDENDUM: Another diagnosis: 1. This patient has been having hyperglycemia and he has a hemoglobin A1c of 6.8, so based on the diagnosis criteria, he probably has diabetes. 2. Possible depression. I will continue with the same management for now. No suicidal ideation. cc: Mendez Morales MD
--- NOTE | 2019-07-10 09:04 | PROGRESS NOTE ---
DATE: 07/10/2019 SUBJECTIVE: The patient is feeling about the same compared with yesterday. He is still having some cough. He got a fever during the night at 102.1 even though he has been placed on Zosyn. What I am going to do is I will stop the Zosyn, put him on cefepime, and I will add vancomycin to his medications. On the other hand, he has some lucency in the CT scan at the level of the liver, so I will get a CT scan of the abdomen and pelvis with contrast as suggested before by the radiologist. He is still slightly tachycardic. Blood pressure has been a mostly in the 90s and 100. His albumin level is low. He is not eating too much. I will give him some albumin. I will replace his electrolytes, especially potassium and phosphorus. I strongly suspect depression on this patient. OBJECTIVE: Vital Signs: Temperature 98.7 degrees, pulse 103, respiratory rate 24, blood pressure 106/59, oxygen saturation 91% on 5 liters of nasal cannula. HEENT: Head normocephalic, no trauma, PERRLA. Neck: Supple. No JVD. No masses. Central trachea. Chest: Decreased breath sounds at the bases with crepitus and rhonchi bilaterally, mostly at the left base. Abdomen: Soft, slightly protuberant, slightly distended. Positive bowel sounds. Extremities: Trace edema. No clubbing, no cyanosis. Neurological: Patient is awake. He is alert. He is oriented. No focal deficit, but he seems to be depressed. LABORATORY DATA: WBC 7.2, hemoglobin 11.5, hematocrit 34.6, platelets 42,000. Sodium 132, potassium 3.3, chloride 102, bicarbonate 19, BUN 11, creatinine 0.8, glucose 115. Hemoglobin A1c 6.8, calcium 7.4, phosphorus 2.1, total bilirubin 2, albumin 2.3. ASSESSMENT AND PLAN: 1. Sepsis due to left lower lobe pneumonia, possible bilateral pneumonia. The blood pressure has been mostly in the 90s and 100s. At this moment he is in the 100s. We will continue to monitor this patient in the intensive care unit. We have Levophed as needed. He has some pleural effusion and bilateral lower lobe infiltrates. I will give him albumin since the albumin level is low. 2. Pulmonary edema, as above. 3. Thrombocytopenia, probably this is chronic, probably related to the sepsis and/or alcohol use, bone marrow suppression. 4. Left lower lobe pneumonia, possible bilaterally at the bases. Continue with antibiotics. I have stopped the Zosyn, and I put him on cefepime and vancomycin. The reason why I stopped Zosyn is because it increases the risk of thrombocytopenia, and this patient is already thrombocytopenic and it is getting slowly worse. 5. Cholelithiasis. We will monitor for now. 6. Hypertension. Actually, this patient has been hypotensive, and even though he was also hypotensive at home and he knew that, he was taking his medication for blood pressure. 7. Alcohol abuse. This patient drinks alcohol every day. Apparently, he stopped drinking 2 or 3 weeks ago. He drinks 1/2 bottle to 1 bottle of wine every night. As per the , probably he drinks more than that and probably also during the day. 8. Nonspecific left upper lobe nodule. Followup imaging is recommended in 4 to 6 weeks. 9. Lucent hepatic lesion of uncertain significance. I have requested a CT of the abdomen and pelvis for 2 reasons, to rule out any kind of liver problem and also another pathology. He is still having some fever. 10. Hypoxemic respiratory failure due to pneumonia and probably some pulmonary edema, aware. Continue with oxygen supplementation. Pulmonary Department on board. CRITICAL CARE TIME: 35 minutes. cc: Mendez Morales MD
[2019-07-10] MEDS: MAXIPIME 2 GM/NS 2 GM/100 ML IVPB IV SCH ×2 (09:32→20:12)
[2019-07-10] MEDS: PROTONIX IV SCH (14:04)
[2019-07-10] MEDS: SODIUM CHLORIDE 0.9% INJ SCH (14:04)
--- NOTE | 2019-07-10 14:36 | Diag Imaging Result Doc PS360 ---
CT ABD/PELVIS W/IV CONT ONLY - 07/10/2019 INDICATION: R/O liver mass - abscess? COMPARISON: CT chest 07/07/2018 FINDINGS: There has been increase in size of the small bilateral pleural effusions. There is stable significant collapse of both lower lobes. Heart size is normal. There are two small low density liver lesions in the right lobe. These are well-defined. These measure eight and 15 mm respectively. There are several calcified gallstones in the gallbladder. No gallbladder distention or inflammation. There is splenomegaly. The spleen measures 13.6 x 6.5 cm. No biliary dilation. The pancreas, adrenals, and kidneys are normal. No bowel obstruction or inflammation. Trace pelvic free fluid. There is moderate body wall edema. Mild diverticulosis of the descending and sigmoid colon. Urinary bladder, prostate, and rectum are normal. Bones are intact and well mineralized. IMPRESSION: 1. Tiny nine appearing cysts in the liver. 2. Splenomegaly. 3. Slight worsening pleural effusions. 4. Diverticulosis coli. This exam was performed using automated exposure control, adjustment of mA or kV according to patient size, and/or use of iterative reconstruction technique Electronically signed by Marvel Payne 07/10/2019 2:33 PM
[2019-07-10] MEDS ORDERED: LASIX IV ONE (17:07)
[2019-07-10] MEDS: LOVENOX SUBQ SCH (20:12)
[2019-07-10] MEDS: CRESTOR PO SCH (20:12)
--- NOTE | 2019-07-10 21:49 | PULMONOLOGY PROGRESS NOTE ---
DATE: 07/10/2019 SUBJECTIVE: The patient is sitting in the chair. He is awake and alert. He is weak when he tries to stand. He has a marginal cough effort. OBJECTIVE: Vital Signs: The patient had an isolated temperature last evening of 102.1 degrees. Heart rate 108, respiratory rate 26, oxygen saturation 95%. HEENT: Pupils are equal and reactive. Oropharynx appears clear. Neck: Supple. Chest: Reveals rhonchi bilaterally with decreased breath sounds in both lung bases. Cardiac: S1-S2. Abdomen: Soft and nontender. Extremities: Without edema. LABORATORIES: White blood count 7.28, hemoglobin 11.5, platelet count 42,000. Sodium 132, potassium 3.3, chloride 102, bicarbonate 19, BUN 12, creatinine 0.8, glucose 115, phosphorus 2.1. Bilirubin 2.0. CT scan of the thorax reveals slight increase in pleural effusions, bibasilar pneumonia, splenomegaly, extensive cholelithiasis. IMPRESSION: A 59-year-old with: 1. Aspiration pneumonia. 2. Bilateral effusions. 3. Gastroesophageal reflux. 4. Fatty liver. 5. Thrombocytopenia. 6. Depression. DISCUSSION: A 59-year-old with problems outlined above. His pleural effusions are slightly worse. With his overall fatigue, I believe it would be reasonable to check an echocardiogram. PLAN: 1. Single dose of Lasix this evening. 2. Continue bronchodilators. 3. Continue antibiotics. 4. Check a proBNP and echocardiogram. cc: Tan Steele MD
[2019-07-10] MEDS: TYLENOL PO PRN (22:23)
[2019-07-10] MEDS: ULTRAM PO PRN (23:57)
[2019-07-11] MEDS: DUONEB (A & A) INH SCH ×4 (03:25→22:03)
[2019-07-11] MEDS: VANCOMYCIN 1,450 MG in NS 250 ML IV SCH ×2 (05:18→23:11)
--- NOTE | 2019-07-11 05:50 | Diag Imaging Result Doc PS360 ---
EXAM: CHEST-PORTABLE HISTORY: abnormal exam TECHNIQUE: Single view COMPARISON: 07/10/2019 FINDINGS: The lungs are well expanded except for atelectasis in the left lung base. There are infiltrates in the mid and lower left lung. These are slightly less pronounced. Stable mild increased interstitial markings in the right base. No cardiomegaly. There is a small left pleural effusion. IMPRESSION: Mild interval improvement Electronically signed by aCrlos Aranda 07/11/2019 5:48 AM
[2019-07-11 06:22] LABS: BASO# 0.04 X1000 (0.0-0.2); BASO% 0.5 % (0.0-0.8); EOS# 0.12 X1000 (0.0-0.7); EOS% 1.4 % (0.0-10.0); HEMATOCRIT 32.8 % (42.0-52.0); HEMOGLOBIN 10.7 g/dL (14.0-18.0); IMM GRAN# 0.07 X1000 (0.0-0.04); IMM GRAN% 0.8 % (0.0-0.5); LYMPH# 0.73 X1000 (1.2-3.4); LYMPH% 8.6 % (20.5-51.1); MCH 27.9 PG (27-31); MCHC 32.6 g/dL (33-37); MCV 85.4 FL (81-99); MONO# 2.12 X1000 (0.11-0.59); MONO% 24.9 % (1.7-9.3); MPV 13.6 FL (7.4-10.4); NEUT# 5.45 X1000 (1.4-6.5); NEUT% 63.8 % (42.2-75.2); PLT 44 X1000 (130-400); RBC 3.84 XMIL (4.7-6.1); WBC 8.53 X1000 (4.8-10.8)
[2019-07-11 06:41] LABS: AGAP 14; ALBUMIN 2.5 g/dL (3.5-5.0); ALKALINE PHOSPHATASE 119 U/L (32-122); BUN 17 mg/dL (8-22); CALCIUM 7.5 mg/dL (8.8-10.2); CHLORIDE 100 mmol/L (98-107); COSMO 266; CREATININE 0.9 mg/dL (0.7-1.2); ESTIMATED GFR > 60; GLUCOSE 131 mg/dL (70-104); GOT 31 U/L (10-34); GPT 18 U/L (10-44); MAGNESIUM 2.1 mg/dL (1.5-2.7); POTASSIUM 3.3 mmol/L (3.5-5.1); SODIUM 131 mmol/L (136-145); TCO2 17 mmol/L (25-35); TOTAL BILIRUBIN 2.18 mg/dL (0.20-1.00)
--- NOTE | 2019-07-11 07:01 | EKG Report ---
Test Performed on : 07/10/2019 11:30:03 PM Test Reason : CHEST PAIN Blood Pressure : / mmHG Vent. Rate : 098 BPM Atrial Rate : 098 BPM P-R Int : 160 ms QRS Dur : 092 ms QT Int : 430 ms P-R-T Axes : 031 030 -21 degrees QTc Int : 548 ms Normal sinus rhythm. Prolonged QT Abnormal ECG When compared with ECG of 19-JUL-2014 10:15, QRS voltage has decreased Nonspecific T wave abnormality, worse in Inferior leads T wave amplitude has decreased in Anterior leads QT has lengthened Confirmed by Yariel Dawson MD ([id number]) on 07/11/2019 4:45:02 PM
[2019-07-11 07:06] LABS: LYMPHS 8 % (21-51); MONO 12 % (1-9); NRBC 1 % (0-0); SEGS 72 % (42-75)
[2019-07-11] MEDS ORDERED: LASIX IV ONE (08:12)
--- NOTE | 2019-07-11 08:12 | PROGRESS NOTE ---
DATE: 07/11/2019 SUBJECTIVE: This patient seems to be feeling a bit better. As per the patient, he has been coughing but nothing is coming up. Apparently he had a good night yesterday. Echocardiogram has been requested to be done today. Pending CMP at this moment and electrolytes. Chest x-ray seems to be better compared with yesterday. He still has some pleural effusion. His urine output is documented to be around 1500. I would like to continue with physical activity. Pulmonary Department following this patient. OBJECTIVE: Vital Signs: Temperature 98.3 degrees, pulse 95, respiratory rate 18, blood pressure 92/53, oxygen saturation 95% on a Venturi mask. HEENT: Head normocephalic. No trauma. PERRLA. Neck: Supple. No JVD. No masses. Central trachea. Chest: Decreased breath sounds at the bases with crepitus and rhonchi bilaterally mostly left base. Abdomen: Soft, slightly protuberant, positive bowel sounds. Extremities: Trace edema. No clubbing, no cyanosis. Neurological: The patient is sleepy, but arousable. He is oriented x3 he is following commands. He seems to be a little bit depressed. LABORATORY: WBC 8.5, hemoglobin 10.7, hematocrit 32.8, platelets 44,000. Pending CMP and electrolytes. ASSESSMENT AND PLAN: 1. Sepsis due to left lower lobe pneumonia, possible bilateral lower lobe pneumonia. The blood pressure has been mostly in the 90s and 100s. We will continue to monitor. Pending CMP. Levophed as needed. He has some pleural effusion, but he has been getting Lasix. It looks like he did not have any fever during the night, so we will monitor. 2. Pulmonary edema. He has been getting Lasix. Will monitor. He is not getting diuretics scheduled, just as needed. 3. Thrombocytopenia, probably this is chronic, probably related to sepsis and/or alcohol use., bone marrow suppression. 4. Left lower lobe pneumonia. Continue with antibiotics. 5. Cholelithiasis. We will monitor for now. 6. Hypertension. Actually this patient has been hypotensive and at home even though he was hypotensive he was taking his blood pressure medication. 7. Alcohol abuse. This patient drinks alcohol every day. Apparently, he stopped 2 to 3 weeks ago. He drinks somewhere between half a bottle to a bottle of wine every day and probably also drinks like beer. As per the probably, he drinks more than that, and probably also during the day. 8. Nonspecific left upper lobe nodule. Followup imaging is recommended in 4 to 6 weeks. 9. Lucent hepatic lesion of uncertain significance, CT scan with contrast showed a cyst. 10. Hypoxemic respiratory failure due to pneumonia and probably some pulmonary edema, aware. He is on a Ventimask at this moment. Pulmonary Department on board. 11. Possible depression. We will continue to monitor for now. 12. This patient has a hemoglobin A1c of 6.8. Based on diagnosis criteria, likely this patient has diabetes. CRITICAL CARE TIME: 35 minutes. cc: Mendez Morales MD
[2019-07-11] MEDS: EFFEXOR PO SCH (08:51)
[2019-07-11] MEDS: FOLIC ACID PO SCH (08:51)
[2019-07-11] MEDS: MAXIPIME 2 GM/NS 2 GM/100 ML IVPB IV SCH ×2 (08:52→20:02)
--- NOTE | 2019-07-11 11:51 | HEMO/ONC PROGRESS NOTE ---
DATE: 07/11/2019 SUBJECTIVE: The patient remains in the ICU this morning. He is sitting in a bedside recliner, sitting up eating breakfast. He states his appetite is returning. He states he still feels bad, but he does feel a little better than yesterday. OBJECTIVE: Vital Signs: Temperature 98.6 degrees, pulse rate 110, respiratory rate 25, blood pressure 100/65, O2 saturation 92% on nasal cannula at 6 L. He is in 0/10 pain. General: The patient is in no acute distress. He has depressed affect. Cardiovascular: Heart rate and rhythm tachycardic. Respiratory: Decreased breath sounds. Rhonchi noted to left base. Abdomen: Slightly protuberant, soft, nontender. Positive bowel sounds. Extremities: Trace edema. Neurological: More alert than he was on Sunday. Oriented x3. Follows commands. Has a depressed flat affect. LABORATORY DATA: WBCs 8.53, hemoglobin 10.7, hematocrit 32.8, platelet count 44,000. Sodium 131, potassium 3.3, calcium 7.5, total bilirubin 2.18. ProBNP 2580. Total protein 5.0, albumin 2.5. RADIOLOGY: Chest x-ray showed some mild interval improvement. ASSESSMENT AND PLAN: 1. Thrombocytopenia. This remains multifactorial. It is most likely due to peripheral consumption due immune destruction or hypersplenism It does not appear to be DIC. We will follow peripherally. Please let us know if needed over the weekend. 2. Sepsis due to left lower lobe pneumonia. The patient continues to be in intensive care unit. His blood pressure remains low. Continue medical management per medical doctor and bight maker. 3. Alcohol abuse due to the patient's daily alcohol consumption. This could also be contributor to his thrombocytopenia. Continue to monitor for delirium tremens. 4. Deep venous thrombosis prophylaxis due to low platelets. He has to be monitored carefully. He is on Lovenox daily. 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 Continue to treat current issues as you are doing and await recovery. Support with transfusions as needed. Laron Brewster MD cc: Laron Brewster MD [facility]
--- NOTE | 2019-07-11 13:26 | ECHO REPORT ---
ORDER DATE: 07/11/2019 INDICATION: Dyspnea. FINDINGS: 1. Right atrium appears normal in size. 2. Mild tricuspid regurgitation. RV systolic pressure unable to be assessed secondary to poor data quality. 3. Normal RV size and systolic function. 4. No significant pulmonic insufficiency. 5. Normal left atrial size with a volume index of 23. 6. No mitral valve prolapse. Mild mitral regurgitation. No mitral stenosis. 7. Normal LV size with an end-diastolic dimension of 4.4 cm. Normal wall thicknesses with a posterior and interventricular septal wall thickness of 0.8 and 0.7 cm respectively. Normal LV systolic function. Calculated ejection fraction of 64% with normal wall motion. 8. Aortic valve opens well. It is trileaflet. No evidence of stenosis or insufficiency. 9. Aorta appears normal in visualized segments. 10. No pericardial effusion identified. 11. Normal diastolic function. 12. Normal IVC size. cc: MD Tan June MD
[2019-07-11] MEDS: TYLENOL PO PRN (14:29)
[2019-07-11] MEDS: SODIUM CHLORIDE 0.9% INJ SCH (14:30)
[2019-07-11] MEDS: PROTONIX IV SCH (14:30)
--- NOTE | 2019-07-11 18:54 | PROVIDER PROGRESS NOTE ---
Progress Note Dr. Granger Progress Note/Pulmonary and or critical care Subjective: The patient is lying in bed on NC 5L with SaO2 in low 90s. He states he feels fine now. He got up to bedside chair this morning and developed desaturation. He still has SOB with light activities. No family at the bedside. Input is appreciated from Dr. Chavira and other teams on the case. Objective: Vital Signs: T 99.9 (low grade fever in last 24 hours), CT 108, RR 22, BP 98/59 and SaO2 92% on NC 5L. I/O: -1425ml Physical Examination: General: Lying in bed with no acute distress noted. HEENT: Normocephalic. Trachea midline. Mucosa pink and moist. Pupils equal round reactive to light. Respiratory: Even and unlabored. Symmetrical excursion. Auscultation reveals decreased air entry and inspiratory crackles bilaterally. CVS: S1 and S2 appreciated. Abdomen: Soft. Nondistended. Nontender. Bowel sounds present in all 4 quadrants. Extremities: Trace pedal edema. Neuro: Awake and alert. Answer simple questions. Following simple commands. Labs and Radiology: Laboratory Results 07/08/19 07/11/19 07/11/19 07:39 06:00 06:00 WBC RBC Hgb Hct MCV MCH MCHC RDW Std Deviation Plt Count MPV Immature Gran % (Auto) Neut % (Auto) Lymph % (Auto) [place] % (Auto) Eos % (Auto) Baso % (Auto) Immature Gran # (Auto) Neut # (Auto) Lymph # (Auto) [place] # (Auto) Eos # (Auto) Baso # (Auto) Segmented Neutrophils Lymphocytes Monocytes Nucleated RBCs Atypical Lymphocytes Unidentified Cells Sodium 131 L Potassium 3.3 L Chloride 100 Carbon Dioxide 17 L Anion Gap 14 BUN 17 Creatinine 0.9 Estimated GFR/1.73 m2 > 60 BUN/Creatinine Ratio 19 Glucose 131 H Calculated Osmolality 266 Calcium 7.5 L Phosphorus 3.0 Magnesium 2.1 Total Bilirubin 2.18 H AST 31 ALT 18 Alkaline Phosphatase 119 Bhq-O-Ylezziobrbg Pept 2580 H Total Protein 5.0 L Albumin 2.5 L Globulin 2.5 Albumin/Globulin Ratio 1.0 Miscellaneous Test SEE COMMENTS 07/11/19 06:00 WBC 8.53 RBC 3.84 L Hgb 10.7 L Hct 32.8 L MCV 85.4 MCH 27.9 MCHC 32.6 L RDW Std Deviation 15.0 H Plt Count 44 L MPV 13.6 H Immature Gran % (Auto) 0.8 H Neut % (Auto) 63.8 Lymph % (Auto) 8.6 L [place] % (Auto) 24.9 H Eos % (Auto) 1.4 Baso % (Auto) 0.5 Immature Gran # (Auto) 0.07 H Neut # (Auto) 5.45 Lymph # (Auto) 0.73 L [place] # (Auto) 2.12 H Eos # (Auto) 0.12 Baso # (Auto) 0.04 Segmented Neutrophils 72 Lymphocytes 8 L Monocytes 12 H Nucleated RBCs 1 H Atypical Lymphocytes 2.0 Unidentified Cells 6.0 Sodium Potassium Chloride Carbon Dioxide Anion Gap BUN Creatinine Estimated GFR/1.73 m2 BUN/Creatinine Ratio Glucose Calculated Osmolality Calcium Phosphorus Magnesium Total Bilirubin AST ALT Alkaline Phosphatase Afk-H-Fihpsfpbeus Pept Total Protein Albumin Globulin Albumin/Globulin Ratio Miscellaneous Test Assessment: Hypoxemic respiratory failure. Shock. Aspiration pneumonia. CXR today shows mild interval improvement. Bilateral effusions. Gastroesophageal reflux Fatty liver. Thrombocytopenia Depression. Prognosis guarded. Plan: Antibiotic (Cefepime and Vancomycin). Bronchodilators. Diuresis as needed. Supplemental oxygen as needed. We have been titrating oxygen to patients need per clinical protocol. We will keep closely monitoring. Echocardiogram scheduled today. Physical therapy. Keep observing in ICU because of shock. Total evaluation time in minutes: 35.
[2019-07-11] MEDS: LOVENOX SUBQ SCH (20:02)
[2019-07-11] MEDS: CRESTOR PO SCH (20:02)
[2019-07-11] MEDS: ULTRAM PO PRN (23:26)
[2019-07-12] MEDS: DUONEB (A & A) INH SCH ×4 (03:32→21:10)
[2019-07-12 06:31] LABS: BASO# 0.04 X1000 (0.0-0.2); BASO% 0.4 % (0.0-0.8); EOS# 0.12 X1000 (0.0-0.7); EOS% 1.2 % (0.0-10.0); HEMATOCRIT 32.8 % (42.0-52.0); HEMOGLOBIN 10.9 g/dL (14.0-18.0); IMM GRAN# 0.07 X1000 (0.0-0.04); IMM GRAN% 0.7 % (0.0-0.5); LYMPH# 0.63 X1000 (1.2-3.4); LYMPH% 6.2 % (20.5-51.1); MCH 28.3 PG (27-31); MCHC 33.2 g/dL (33-37); MCV 85.2 FL (81-99); MONO# 2.92 X1000 (0.11-0.59); MONO% 28.6 % (1.7-9.3); NEUT# 6.43 X1000 (1.4-6.5); NEUT% 62.9 % (42.2-75.2); RBC 3.85 XMIL (4.7-6.1); RDW 15.3 % (11.5-14.5); WBC 10.21 X1000 (4.8-10.8)
[2019-07-12 06:38] LABS: AGAP 12; ALBUMIN 2.2 g/dL (3.5-5.0); ALKALINE PHOSPHATASE 124 U/L (32-122); BUN 21 mg/dL (8-22); CALCIUM 7.6 mg/dL (8.8-10.2); CHLORIDE 97 mmol/L (98-107); COSMO 258; ESTIMATED GFR > 60; GLUCOSE 135 mg/dL (70-104); GOT 35 U/L (10-34); GPT 22 U/L (10-44); PHOSPHORUS 2.1 mg/dL (2.7-4.5); POTASSIUM 3.4 mmol/L (3.5-5.1); SODIUM 126 mmol/L (136-145); TCO2 17 mmol/L (25-35); TOTAL BILIRUBIN 2.31 mg/dL (0.20-1.00); TOTAL PROTEIN 4.5 g/dL (6.3-8.3)
[2019-07-12] MEDS ORDERED: KLOR-CON PO ONE (06:52)
--- NOTE | 2019-07-12 07:20 | Diag Imaging Result Doc PS360 ---
EXAM: CHEST-PORTABLE HISTORY: dyspnea TECHNIQUE: Single view COMPARISON: 07/11/2019 FINDINGS: Poor inspiratory effort. There are infiltrates in the mid and lower lungs with basilar atelectasis. There are small pleural effusions. Mild vascular prominence. IMPRESSION: Interval worsening Electronically signed by Carlos Aranda 07/12/2019 7:17 AM
[2019-07-12 07:36] LABS: LYMPHS 2 % (21-51); MONO 8 % (1-9); SEGS 90 % (42-75)
[2019-07-12 07:37] LABS: LARGE PLATELETS OCCASIONAL; POLYCHROM OCCASIONAL
[2019-07-12] MEDS: ZYVOX 600 MG/D5W 600 MG/300 ML IVPB IV SCH ×2 (08:07→20:40)
[2019-07-12 08:08] LABS: PLT 38 X1000 (130-400)
[2019-07-12] MEDS: VITAMIN B-1 PO SCH (08:12)
[2019-07-12] MEDS: EFFEXOR PO SCH (08:12)
[2019-07-12] MEDS: FOLIC ACID PO SCH (08:12)
[2019-07-12] MEDS: MAXIPIME 2 GM/NS 2 GM/100 ML IVPB IV SCH ×2 (08:13→20:40)
[2019-07-12] MEDS: MIRALAX PO SCH (08:13)
[2019-07-12] MEDS: CARAFATE LIQUID PO PRN (09:20)
[2019-07-12] MEDS ORDERED: LASIX IV ONE (10:10)
--- NOTE | 2019-07-12 11:16 | PROGRESS NOTE ---
DATE: 07/12/2019 SUBJECTIVE: The patient feels a little bit worse compared with yesterday. He is still desaturating with physical activity and during sleeping. He received a dose of Lasix yesterday, but he is not voiding too much. His BUN and creatinine increased just a little bit, still between normal limits, but I will stop the vancomycin and put him on Zyvox to avoid more nephrotoxicity. His urine output in 24 hours is documented at 1100, again even though he received some Lasix. OBJECTIVE: Vital Signs: Temperature 98.9 degrees, pulse 109, respiratory rate 21, blood pressure 99/56, oxygen saturation 91% on 5 L of nasal cannula. HEENT: Head normocephalic, no trauma. PERRLA. Neck: Supple. No JVD. No masses. Central trachea. Chest: Decreased breath sounds at the bases with crepitus and rhonchi bilaterally, mostly at the left base. He has some crackles. Abdomen: Soft, slightly protuberant, positive bowel sounds. Extremities: Trace to 1+ edema. No clubbing. No cyanosis. Neurological: The patient is awake, he is alert, he is following commands. He does have generalized weakness. He seems to be depressed. LABORATORY DATA: WBC 10.2, hemoglobin 10.9, hematocrit 32.8, platelet has been reported low, I believe 38,000, but is not in the computer yet. Sodium 126, potassium 3.4, chloride 97, bicarbonate 17, BUN 21, creatinine 1, glucose 135, calcium 7.6, phosphorus 2.1, albumin 2.2. ASSESSMENT AND PLAN: 1. Sepsis due to left lower lobe pneumonia. Blood pressure has been in the 90s and 100s, he has been hypoxemic. Continue with the same management. I will stop the vancomycin and put him on Zyvox due to decreased urine output. We will monitor this patient closely. Levophed is as needed. 2. Pulmonary edema. Even though he has been getting Lasix, the x-ray looks worse. We will monitor. 3. Thrombocytopenia, likely chronic, but probably is related to sepsis and/or alcohol abuse/bone marrow suppression. 4. Left lower lobe pneumonia. Continue with antibiotics. 5. Cholelithiasis. We will monitor for now. 6. Electrolyte imbalance, especially hyponatremia, hypokalemia and hypophosphatemia. We will keep an eye on that. I will replace those as needed. He will receive some potassium today. 7. Alcohol abuse. This patient basically drinks alcohol every day and apparently he has not been drinking for 2 to 3 weeks. He drinks somewhere between half a bottle to a bottle of wine every day and probably he drinks more than that during the day per the . 8. Nonspecific left upper lobe nodule. Follow-up imaging is recommended in 4 to 6 weeks. 9. Lucent hepatic lesion of uncertain significance, CT scan with contrast showed a cyst. 10. Hypoxemic respiratory failure due to pneumonia and pulmonary edema. Aware. Continue with antibiotics. He has been using nasal cannula and Ventimask on and off. Pulmonary Department on board. He is not responding to the Lasix. 11. Likely depression. Continue to monitor for now. 12. The patient has a hemoglobin A1c of 6.8, so based on diagnosis criteria, likely this patient has diabetes. 13. The patient was having at the beginning of this hospitalization fever, even though he is on broad-spectrum antibiotics. His blood cultures are negative so far. We did a CT scan of the abdomen and pelvis to rule out any other condition like abscess, especially since he had some lucency at the level of the liver. We will continue to monitor this patient in the ICU. CRITICAL CARE TIME: 35 minutes. cc: Mendez Morales MD
[2019-07-12] MEDS ORDERED: ALBUMIN 25% IV ONE (12:00)
[2019-07-12] MEDS: ATIVAN IV PRN (12:50)
[2019-07-12] MEDS: SODIUM CHLORIDE 0.9% INJ SCH (15:51)
[2019-07-12] MEDS: PROTONIX IV SCH (15:51)
--- NOTE | 2019-07-12 19:06 | PROVIDER PROGRESS NOTE ---
Progress Note Dr. Granger Progress Note/Pulmonary and or critical care Subjective: The patient is lying in bed on VM 50%. He appears pale, tired and weak. He states he feels worse today with more difficulty breathing. Family at the bedside. Input is appreciated from Dr. Chavira and other teams on the case. Objective: Vital Signs: T 99.9 (low grade fever in last 24 hours), CA 108, RR 23, BP 98/58 and SaO2 92% on VM 50%. I/O: +890ml Physical Examination: General: Lying in bed with no acute distress noted, but appears sicker than yesterday. HEENT: Normocephalic. Trachea midline. Mucosa pink and moist. Pupils equal round reactive to light. Respiratory: Even and unlabored. Symmetrical excursion. Auscultation reveals few inspiratory crackles bilaterally. CVS: S1 and S2 appreciated. Abdomen: Soft. Nondistended. Nontender. Bowel sounds present in all 4 quadrants. Extremities: Trace pedal edema. Neuro: Awake and alert. Answer simple questions. Following simple commands. Labs and Radiology: Laboratory Results 07/12/19 07/12/19 04:42 04:42 WBC 10.21 RBC 3.85 L Hgb 10.9 L Hct 32.8 L MCV 85.2 MCH 28.3 MCHC 33.2 RDW Std Deviation 15.3 H Plt Count 38 L* MPV Not Reportable Immature Gran % (Auto) 0.7 H Neut % (Auto) 62.9 Lymph % (Auto) 6.2 L [place] % (Auto) 28.6 H Eos % (Auto) 1.2 Baso % (Auto) 0.4 Immature Gran # (Auto) 0.07 H Neut # (Auto) 6.43 Lymph # (Auto) 0.63 L [place] # (Auto) 2.92 H Eos # (Auto) 0.12 Baso # (Auto) 0.04 Segmented Neutrophils 90 H Lymphocytes 2 L Monocytes 8 Large Platelets OCCASIONAL Polychromasia OCCASIONAL Sodium 126 L Potassium 3.4 L Chloride 97 L Carbon Dioxide 17 L Anion Gap 12 BUN 21 Creatinine 1.0 Estimated GFR/1.73 m2 > 60 BUN/Creatinine Ratio 21 Glucose 135 H Calculated Osmolality 258 Calcium 7.6 L Phosphorus 2.1 L Magnesium 2.0 Total Bilirubin 2.31 H AST 35 H ALT 22 Alkaline Phosphatase 124 H Total Protein 4.5 L Albumin 2.2 L Globulin 2.3 Albumin/Globulin Ratio 1.0 Assessment: Acute hypoxemic respiratory failure. Clinically worse today and he requires higher oxygen demand compared with yesterday. Shock. Stable. Patient stays off pressor. Aspiration pneumonia. CXR today shows interval worsening.. Bilateral effusions with basilar atelectasis. Gastroesophageal reflux Fatty liver. Thrombocytopenia. Worsening. Depression. Prognosis guarded. Plan: Antibiotic (Cefepime and Linezolid; Vancomycin was discontinued yesterday and Linezolid starts today). Bronchodilators. Diuresis as needed. We are giving 60mg Lasix IV now. We keep watching patients blood pressure closely. So far he is staying off pressor, but if needed, we can start Norepinephrine per clinical protocol. Supplemental oxygen as needed. We have been titrating oxygen to patients need per clinical protocol. We will keep closely monitoring. Physical therapy. Keep observing in ICU because of shock and declining respiratory status. Total evaluation time in minutes: 33.
[2019-07-12] MEDS: CRESTOR PO SCH (20:40)
[2019-07-12] MEDS: LOVENOX SUBQ SCH (20:40)
[2019-07-12] MEDS: TYLENOL PO PRN (20:44)
[2019-07-13] MEDS: ATIVAN IV PRN ×2 (00:33→20:41)
[2019-07-13] MEDS: DUONEB (A & A) INH SCH ×4 (03:20→21:15)
[2019-07-13 04:42] LABS: ALLEN TEST YES; BE -5.4 mmoll (-3.0-3.0); BLOOD TYPE ARTERIAL; HCO3-(ACT) 20.7 mmoll (20.0-26.0); METHB 0.7 % (0.0-1.5); O2(CT) 13.9 mL/dL (15.0-23.0); O2HB 96.7 % (95.0-99.0); PCO2(98.6) 27 mmHg (35-45); PO2(98.6) 93 mmHg (60-100); SAMPLE BLOOD; SAO2 100.3 % (95.0-100.0); THB 10.1 g/dL (11.5-17.4); pH(98.6) 7.43 (7.35-7.45)
[2019-07-13 04:43] LABS: MODALITY PRB
[2019-07-13 07:03] LABS: ALBUMIN 2.3 g/dL (3.5-5.0); CALCIUM 7.4 mg/dL (8.8-10.2); CREATININE 1.3 mg/dL (0.7-1.2); MAGNESIUM 2.2 mg/dL (1.5-2.7); PHOSPHORUS 2.1 mg/dL (2.7-4.5); POTASSIUM 3.5 mmol/L (3.5-5.1); TOTAL BILIRUBIN 2.36 mg/dL (0.20-1.00); TOTAL PROTEIN 4.6 g/dL (6.3-8.3)
[2019-07-13] MEDS ORDERED: ALBUMIN 25% IV ONE (07:08)
--- NOTE | 2019-07-13 07:17 | Diag Imaging Result Doc PS360 ---
EXAM: CHEST-PORTABLE - 07/13/2019 HISTORY: dyspnea TECHNIQUE: Portable chest COMPARISON: 07/12/2019 FINDINGS: There has been some decrease in bilateral infiltrates/edema. There is a small left pleural effusion. There is no evidence of pneumothorax. Heart size is normal. IMPRESSION: Some decrease in bilateral infiltrates/edema. Electronically signed by Fidel Kenny 07/13/2019 7:14 AM
[2019-07-13 07:40] LABS: BASO# 0.02 X1000 (0.0-0.2); BASO% 0.2 % (0.0-0.8); EOS# 0.12 X1000 (0.0-0.7); EOS% 1.4 % (0.0-10.0); HEMATOCRIT 29.6 % (42.0-52.0); HEMOGLOBIN 9.8 g/dL (14.0-18.0); IMM GRAN# 0.06 X1000 (0.0-0.04); IMM GRAN% 0.7 % (0.0-0.5); LYMPH# 0.67 X1000 (1.2-3.4); LYMPH% 7.6 % (20.5-51.1); MCH 27.8 PG (27-31); MCHC 33.1 g/dL (33-37); MCV 84.1 FL (81-99); MONO# 2.23 X1000 (0.11-0.59); MONO% 25.3 % (1.7-9.3); NEUT# 5.73 X1000 (1.4-6.5); NEUT% 64.8 % (42.2-75.2); PLT 32 X1000 (130-400); RBC 3.52 XMIL (4.7-6.1); RDW 15.2 % (11.5-14.5); WBC 8.83 X1000 (4.8-10.8)
[2019-07-13] MEDS: ZYVOX 600 MG/D5W 600 MG/300 ML IVPB IV SCH ×2 (07:59→20:40)
[2019-07-13] MEDS: VITAMIN B-1 PO SCH (08:08)
[2019-07-13] MEDS: EFFEXOR PO SCH (08:08)
[2019-07-13] MEDS: FOLIC ACID PO SCH (08:08)
[2019-07-13] MEDS: MAXIPIME 2 GM/NS 2 GM/100 ML IVPB IV SCH ×2 (08:09→20:40)
[2019-07-13] MEDS: MIRALAX PO SCH (08:09)
--- NOTE | 2019-07-13 08:35 | PROGRESS NOTE ---
DATE: 07/13/2019 SUBJECTIVE: The patient seems to be breathing better today compared with yesterday, but he is still desaturating with physical therapy and during sleeping. He received a dose of Lasix and also albumin yesterday. I will give him some albumin again today. He does have lower extremity edema all the way up to the thigh and actually, he has some abdominal wall edema as well. His kidney function is getting worse and his urine output has been around 1.5 L, even though he has been getting Lasix. I had a large conversation with the at the bedside and I explained to her the whole situation and the plan, and she agreed with that. OBJECTIVE: Vital Signs: Temperature 98.9 degrees, pulse 104, respiratory rate 22, blood pressure 105/64, oxygen saturation 96 on a nonrebreathing mask. HEENT: Head normocephalic. No trauma. PERRLA. Neck: Supple. Chest: Decreased breath sounds at the bases with crepitus and rhonchi bilaterally. Some crackles. Abdomen: Soft, slightly protuberant. Positive bowel sounds. He does have abdominal wall edema, mostly to the sides. Extremities: There is 2+ lower extremity edema all the way up to the thigh. No clubbing, no cyanosis. Neurological Examination: The patient is awake. He is weak. He is oriented. He is following commands. Laboratory: WBC 8.8, hemoglobin 9.8, hematocrit 29.6, platelets 32,000. Sodium 129, potassium 3.5, chloride 99, bicarbonate 17, BUN 26, creatinine 1.3, glucose 124, calcium 7.4, phosphorus 2.1. Total bilirubin 2.3, AST 35, ALT 22, alkaline phosphatase 120, albumin 2.3. ASSESSMENT AND PLAN: 1. Sepsis due to left lower lobe pneumonia. Blood pressure seems to be still on the low side. No pressors so far. Continue with the same management. Continue with antibiotics. I will get the infectious disease doctor to evaluate this patient since he is still having some fever/low-grade temperature. 2. Pulmonary edema. Even though this patient has been getting Lasix, he is not responding too well and actually, the kidney function is going up. 3. Acute kidney injury. I will give him a dose of albumin today. He already received some yesterday. I will monitor this patient closely and I will get nephrology department as needed. 4. Left lower lobe pneumonia. Continue with antibiotics. I will get infectious disease department doctor to see the patient. 5. Cholelithiasis. Continue to monitor for now. 6. Electrolyte imbalance, especially hyponatremia and hypophosphatemia. For now, I will monitor. Sodium level seems to be better compared with yesterday and potassium seems to be better today. 7. Nonspecific left upper lobe nodule. The patient will need to follow up with a new CT scan in 4 to 6 weeks. 8. Hypoxemic respiratory failure due to pneumonia and pulmonary edema. Aware. Continue with antibiotics, oxygen supplementation, breathing treatments. 9. Likely depression. Continue to monitor for now. 10. The patient has a hemoglobin A1c of 6.8, so based on diagnosis criteria, likely this patient has diabetes. As per the , the hemoglobin A1c has been trending up slowly. 11. The patient has been having on and off fever and/or low-grade fever since the beginning of this hospitalization, even though he has been on broad-spectrum antibiotics. We had a blood culture that has been negative so far but I will repeat it today. Also, we will ask for immunoglobulin levels. We did a CT scan of the abdomen and pelvis to rule out any other conditions like abscess, especially since he had some lucency at the level of the liver. 12. Alcohol abuse. This patient drinks every day. He stopped drinking apparently 2 to 3 weeks ago. He drinks somewhere between half a bottle to one bottle of wine every day, and probably he drinks more during the day per the . CRITICAL CARE TIME: 35 minutes. cc: Mendez Morales MD
[2019-07-13] MEDS: TYLENOL PO PRN (09:17)
[2019-07-13 09:20] LABS: ANISOCYTOSIS 2+; BURR CELLS OCCASIONAL; EOS 2 % (1-10); HOWELL-JOLLY BODIES OCCASIONAL; HYPOCHROM 1+; LARGE PLATELETS OCCASIONAL; LYMPHS 9 % (21-51); MICROCYTOSIS 2+; MONO 23 % (1-9); SEGS 66 % (42-75)
[2019-07-13 09:21] LABS: POIKILOCYTOSIS OCCASIONAL
[2019-07-13] MEDS: ZOFRAN IV PRN ×2 (09:59→15:36)
[2019-07-13] MEDS: PROTONIX IV SCH (15:36)
[2019-07-13] MEDS: SODIUM CHLORIDE 0.9% INJ SCH (15:36)
--- NOTE | 2019-07-13 17:24 | PROVIDER PROGRESS NOTE ---
Progress Note Dr. Granger Progress Note/Pulmonary and or critical care Subjective: The patient is lying in bed on NRB. He still appears tired and weak, but not pale today. He apparently got up and sat at the bedside this morning, but later, he became desaturated and has been put on NRB since then. He also had one episode of fever at 100.1 and nausea this morning. Family at the bedside. Input is appreciated from Dr. Chavira and other teams on the case. Objective: Vital Signs: T 99.4 (fever in last 24 hours), AK 99, RR 23, BP 91/54 and SaO2 91% on NRB. I/O: -175ml Physical Examination: General: Lying in bed with no acute distress noted, but appears as sick as yesterday. HEENT: Normocephalic. Trachea midline. Mucosa pink and moist. Pupils equal round reactive to light. Respiratory: Even and unlabored. Symmetrical excursion. Auscultation reveals few inspiratory crackles bilaterally. CVS: S1 and S2 appreciated. Abdomen: Soft. Nondistended. Nontender. Bowel sounds present in all 4 quadrants. Extremities: BLE pitting edema 1+ up to thigh. Neuro: Awake and alert. Answer simple questions. Following simple commands. Labs and Radiology: Laboratory Results 07/13/19 07/13/19 07/13/19 04:15 04:15 04:42 WBC 8.83 RBC 3.52 L Hgb 9.8 L Hct 29.6 L MCV 84.1 MCH 27.8 MCHC 33.1 RDW Std Deviation 15.2 H Plt Count 32 L* MPV Not Reportable Immature Gran % (Auto) 0.7 H Neut % (Auto) 64.8 Lymph % (Auto) 7.6 L [place] % (Auto) 25.3 H Eos % (Auto) 1.4 Baso % (Auto) 0.2 Immature Gran # (Auto) 0.06 H Neut # (Auto) 5.73 Lymph # (Auto) 0.67 L [place] # (Auto) 2.23 H Eos # (Auto) 0.12 Baso # (Auto) 0.02 Segmented Neutrophils 66 Lymphocytes 9 L Monocytes 23 H Eosinophils 2 Hypochromia 1+ Large Platelets OCCASIONAL Poikilocytosis OCCASIONAL Anisocytosis 2+ Microcytosis 2+ Colon-[place] Bodies OCCASIONAL [place] Cells OCCASIONAL Specimen Type ARTERIAL Sample Site R RADIAL pH 7.43 pCO2 27 L pO2 93 HCO3 20.7 Base Excess -5.4 L Oxyhemoglobin 96.7 ABG O2 Sat (Calculated) 13.9 L ABG O2 Saturation 100.3 H ABG Carboxyhemoglobin 2.90 H ABG Methemoglobin 0.7 Al Test YES A-a O2 Difference 372.0 Total Hemoglobin 10.1 L Lactate 1.70 Liter Flow 15.0 Blood Gas Modality PRB FiO2 % 70.0 Sodium 129 L Potassium 3.5 Chloride 99 Carbon Dioxide 17 L Anion Gap 13 BUN 26 H Creatinine 1.3 H Estimated GFR/1.73 m2 56 BUN/Creatinine Ratio 20 Glucose 124 H Calculated Osmolality 265 Calcium 7.4 L Phosphorus 2.1 L Magnesium 2.2 Total Bilirubin 2.36 H AST 35 H ALT 22 Alkaline Phosphatase 120 Total Protein 4.6 L Albumin 2.3 L Globulin 2.3 Albumin/Globulin Ratio 1.0 Assessment: Acute hypoxemic respiratory failure. Stay critical. Patient still requires high oxygen demand. Sepsis and Shock. Patient keep staying off pressor at this time. He still has fever, persistently mild tachycardia and occasional tachypnea. WBC stays WNL. He has metabolic acidosis compensated with respiratory alkalosis. Aspiration pneumonia with bilateral infiltrates/edema and a small left pleural effusion. CXR today shows some decrease in bilateral infiltrates/edema. Gastroesophageal reflux Fatty liver. Thrombocytopenia. Worsening. Acute kidney injury. BUN/Creatinine 26/1.3 this morning. Prognosis guarded. Plan: Antibiotic (Cefepime and Linezolid). Bronchodilators. Diuresis as needed. We keep watching patients blood pressure closely. So far he is staying off pressor, but if needed, we can start Norepinephrine per clinical protocol. Supplemental oxygen as needed. We start BiPAP at bed time and as needed. We titrated oxygen and BiPAP settings to patients need per clinical protocol. We will keep closely monitoring. Physical therapy. Dr. Coulter and Dr. Carroll consulted. Keep observing in ICU because of sepsis, shock and critical respiratory status. Total evaluation time in minutes: 34.
[2019-07-13 18:46] LABS: URINE SOURCE VOIDED
[2019-07-13 18:55] LABS: BILIRUBIN URINE NEGATIVE (NEGATIVE); BLOOD URINE NEGATIVE (NEGATIVE); COLOR YELLOW; GLUCOSE URINE NEGATIVE (NEGATIVE); KETONE URINE TRACE mg/dL (NEGATIVE); LEUKOCYTES URINE NEGATIVE (NEGATIVE); NITRITE URINE NEGATIVE (NEGATIVE); PH URINE 5.5; PROTEIN URINE 30 mg/dL (NEGATIVE); SP GRAVITY URINE 1.016; TURBIDITY URINE CLEAR (CLEAR); UROBILINOGEN URINE NORMAL (NORMAL)
[2019-07-13 18:56] LABS: UR EPITHELIAL CELLS <10 /HPF (<10); URINE BACTERIA NEGATIVE /HPF; URINE RBC <10 /HPF (<10); URINE WBC <10 /HPF (<10)
[2019-07-13 19:20] LABS: UR CREAT RANDOM 70.2 mg/dL (14-26); UR SODIUM < 10 mmoll
[2019-07-13] MEDS: CRESTOR PO SCH (20:40)
--- NOTE | 2019-07-13 21:26 | Diag Imaging Result Doc PS360 ---
EXAM: US RENAL 2 (RETROPER) COMPLETE - 07/13/2019 HISTORY: Decreased urine output TECHNIQUE: Bilateral renal ultrasound COMPARISON: 07/07/2019 ultrasound gallbladder FINDINGS: The right kidney measures 11.9 x 5.3 x 4.6 cm in size, and has cortical thickness of approximately 1.1 cm. The left kidney measures 11.2 x 4.7 x 4.9 cm in size, and has cortical thickness of approximately 1.2 cm. There is no renal mass, stone, or hydronephrosis identified. Images of the urinary bladder demonstrate no lesion. The prostate measures 3.3 x 3.6 x 3.1 cm in size. The prostate otherwise is not evaluated by this exam. IMPRESSION: No visible renal abnormality. Electronically signed by Fidel Kenny 07/13/2019 9:24 PM
[2019-07-14] MEDS: DUONEB (A & A) INH SCH ×4 (03:15→23:00)
[2019-07-14 04:59] LABS: ALLEN TEST YES; BE -7.6 mmoll (-3.0-3.0); BLOOD TYPE ARTERIAL; METHB 0.6 % (0.0-1.5); O2(CT) 14.3 mL/dL (15.0-23.0); O2HB 97.6 % (95.0-99.0); PCO2(98.6) 23 mmHg (35-45); PO2(98.6) 146 mmHg (60-100); SAMPLE BLOOD; SAO2 99.9 % (95.0-100.0); THB 10.2 g/dL (11.5-17.4); pH(98.6) 7.43 (7.35-7.45)
[2019-07-14 05:04] LABS: MODALITY BI PAP
--- NOTE | 2019-07-14 07:20 | PROGRESS NOTE ---
DATE: 07/14/2019 SUBJECTIVE: As per the patient, he feels worse compared with yesterday. He is having more shortness of breath and weakness. X-ray looks worse for me pending final reading. He spent most of the night with the BiPAP machine. His urine output is around 900 mL pending lab work at this moment. OBJECTIVE: Vital Signs: Temperature 98.1 degrees, pulse 96, respiratory rate 26, blood pressure 101/62, oxygen saturation 97 on the BiPAP machine. HEENT: Head normocephalic, no trauma. PERRLA. Neck: Supple. I do not see JVD. Central trachea. Chest: Decreased breath sounds globally, coarse breath sounds mostly at the bases. Some crepitus and rhonchi bilaterally, crackles at the bases. Abdomen: Soft, protuberant. Positive bowel sounds. He does have some abdominal wall edema, mostly to the sides. Extremities: There is 2+ to 3+ lower extremity edema all the way up to the thigh. No clubbing, no cyanosis. Neurological examination: The patient is sleepy, but arousable. He is oriented. He is following commands, but he does have generalized weakness. LABORATORY: Pending lab work at this moment. The pH 7.4, pCO2 23, PO2 146 on the BiPAP machine and bicarbonate 19. ASSESSMENT AND PLAN: 1. Sepsis due to left lower lobe pneumonia. Blood pressure has been mostly in the 100s and 110. He has been tachycardic and tachypneic, and this is likely a combination of pulmonary edema and pneumonia. The Pulmonary Department following this patient. I will continue with broad spectrum antibiotics. Sputum culture and blood cultures are negative so far, including the new blood culture from yesterday, which I repeated because he was having some fever for the past few days. 2. Pulmonary edema. Even though this patient was getting Lasix and albumin. He is not voiding too much, he has fluid overload likely anasarca. Pending lab work today. Nephrology Department has been consulted due to acute kidney injury. 3. Left lower lobe pneumonia. Continue with broad spectrum antibiotics. 4. Cholelithiasis. Continue to monitor for now. 5. Hypoxemic respiratory failure likely due to a combination of pneumonia and pulmonary edema. 6. Electrolyte imbalance. We will monitor pending lab work today. 7. Nonspecific left upper lobe nodule. He will need to follow up with a new CT scan in a few weeks when he gets better. 8. Likely depression. Continue to monitor. 9. This patient has a hemoglobin A1c of 6.8, so based on the diagnosis criteria this patient has diabetes. Per the , the hemoglobin A1c has been trending up slowly. 10. Alcohol abuse. This patient basically drinks every day. He stopped drinking apparently 2 to 3 weeks ago. He drinks somewhere between half a bottle to 1 bottle of wine daily and probably, as per the he drinks more than that during the day, and probably he also drinks beer. He has been highly advised against alcohol use. I will continue with daily cessation education. CRITICAL CARE TIME: 32 minutes. cc: Mendez Morales MD
[2019-07-14] MEDS: ZYVOX 600 MG/D5W 600 MG/300 ML IVPB IV SCH ×2 (07:28→20:31)
--- NOTE | 2019-07-14 07:37 | Diag Imaging Result Doc PS360 ---
EXAM: CHEST-PORTABLE HISTORY: dyspnea TECHNIQUE: Single view COMPARISON: 07/13/2019 FINDINGS: Worsening infiltrates in the right upper and lower lobes. There are also infiltrates and atelectasis in the lower left lung. These may be slightly more prominent in the mid left lung as well. There is a small left pleural effusion. No cardiomegaly. IMPRESSION: Interval worsening Electronically signed by Carlos Aranda 07/14/2019 7:35 AM
[2019-07-14] MEDS: ZOFRAN IV PRN (07:38)
[2019-07-14] MEDS: FOLIC ACID PO SCH (08:21)
[2019-07-14] MEDS: MIRALAX PO SCH (08:21)
[2019-07-14] MEDS: TYLENOL PO PRN (08:21)
[2019-07-14] MEDS: EFFEXOR PO SCH (08:21)
[2019-07-14] MEDS: VITAMIN B-1 PO SCH (08:21)
[2019-07-14] MEDS: MAXIPIME 2 GM/NS 2 GM/100 ML IVPB IV SCH ×2 (08:21→20:31)
[2019-07-14 08:27] LABS: ALB/GLOB RATIO 1.4; ALBUMIN 2.6 g/dL (3.5-5.0); CALCIUM 7.9 mg/dL (8.8-10.2); CREATININE 1.5 mg/dL (0.7-1.2); MAGNESIUM 2.1 mg/dL (1.5-2.7); PHOSPHORUS 2.6 mg/dL (2.7-4.5); POTASSIUM 3.8 mmol/L (3.5-5.1); TOTAL BILIRUBIN 3.3 mg/dL (0.20-1.00); TOTAL PROTEIN 4.5 g/dL (6.3-8.3)
[2019-07-14 08:35] LABS: BASO# 0.03 X1000 (0.0-0.2); BASO% 0.3 % (0.0-0.8); EOS# 0.11 X1000 (0.0-0.7); HEMATOCRIT 30.8 % (42.0-52.0); IMM GRAN# 0.14 X1000 (0.0-0.04); IMM GRAN% 1.3 % (0.0-0.5); LYMPH# 0.74 X1000 (1.2-3.4); LYMPH% 6.7 % (20.5-51.1); MCH 27.6 PG (27-31); MCHC 32.5 g/dL (33-37); MCV 85.1 FL (81-99); MONO# 2.97 X1000 (0.11-0.59); MONO% 26.7 % (1.7-9.3); NEUT# 7.12 X1000 (1.4-6.5); PLT 31 X1000 (130-400); RBC 3.62 XMIL (4.7-6.1); RDW 15.6 % (11.5-14.5); WBC 11.11 X1000 (4.8-10.8)
[2019-07-14 09:01] LABS: BANDS 10 % (0-1); LARGE PLATELETS 1+; LYMPHS 2 % (21-51); MONO 18 % (1-9); SEGS 70 % (42-75)
[2019-07-14] MEDS ORDERED: LASIX IV ONE (10:48)
--- NOTE | 2019-07-14 11:06 | Diag Imaging Result Doc PS360 ---
EXAM: CT THORAX W/O CONTRAST HISTORY: worsening pneumonia TECHNIQUE: CT chest without contrast COMPARISON: 07/07/2019 FINDINGS: Interval increase in the size of the bilateral pleural effusions which are now small to moderate in size. The one on the left measures 3.2 cm in the posterior midline inferiorly in the one on the right measures 2.9 cm. There are bilateral lower lobe infiltrates with worsening atelectasis. There are also worsening infiltrates in the upper lobes bilaterally. No cardiomegaly. No aortic aneurysm. A calcified mediastinal and hilar lymph nodes. IMPRESSION: Interval worsening in the bilateral pneumonia. This exam was performed using automated exposure control, adjustment of mA or kV according to patient size, and/or use of iterative reconstruction technique. Electronically signed by Carlos Aranda 07/14/2019 11:04 AM
[2019-07-14] MEDS: ATIVAN IV PRN ×4 (11:09→20:44)
[2019-07-14] MEDS: ALBUMIN 25% IV SCH (11:09)
[2019-07-14] MEDS ORDERED: SODIUM CHLORIDE 0.9% INJ PRN (11:46)
[2019-07-14] MEDS ORDERED: PHENERGAN IV PRN (11:46)
[2019-07-14] MEDS ORDERED: ZOFRAN IV PRN (11:47)
[2019-07-14 14:01] LABS: INR 2.17; PROTIME 24.8 Seconds (11.0-16.0)
[2019-07-14] MEDS: PROTONIX IV SCH (14:12)
[2019-07-14] MEDS: SODIUM CHLORIDE 0.9% INJ SCH (14:12)
[2019-07-14] MEDS ORDERED: D10W 1,000 ML IV SCH (16:30)
[2019-07-14 16:31] LABS: CHOLESTEROL 41 mg/dL (0-200); PREALBUMIN < 3.0 mg/dL (20-40); TRIGLYCERIDES 140 mg/dL (39-160)
--- NOTE | 2019-07-14 17:07 | HEMO/ONC PROGRESS NOTE ---
DATE: 07/14/2019 SUBJECTIVE: The patient remains in the ICU. He states he is feeling worse. He has multiple family at bedside at this time. He is using a ventilator mask this morning. Nursing tells me he is using BiPAP machine at night. There were no significant events over the weekend. OBJECTIVE: Vital Signs: Temperature 98 degrees, pulse rate 98, respiratory rate 22, blood pressure 94/64, O2 saturation 91% on 15 L via Venturi mask. General: Patient looks very ill with a flat affect minimal interaction. Cardiovascular: Tachycardic rate and rhythm. Respiratory: Decreased breath sounds throughout, coarse breath sounds at the basis, crackles or rhonchi in the upper lungs. Abdomen: Protuberant, soft, nontender. Extremities: Trace edema noted. Neurologic: The patient remains lethargic but he will fully answer questions. He continues to have a flat affect. LABORATORY: WBC 11.11, hemoglobin 10.0, hematocrit 30.8, platelet count 31,000, ANC 7.12. Sodium 132, creatinine 1.5, BUN 34, calcium 7.9, phosphorus 2.6, mag 2.1, bilirubin 3.3. RADIOLOGY: Chest CT shows interval worsening in the bilateral pneumonia. ASSESSMENT AND PLAN: 1. Thrombocytopenia. This continues to remain multifactorial most likely peripheral or immune destruction due to his sepsis. We will continue to follow him peripherally. Transfuse for a platelet count of less than 20,000 or if bleeding. 2. Sepsis due to left lower lobe pneumonia. The patient has remained in the intensive care unit. It appears his pneumonia has worsened. Continue medical management and pulmonology. 3. Alcohol abuse. This could also be a contributor to his thrombocytopenia. 4. Deep venous thrombosis prophylaxis due to low platelets, looks like the patient's Lovenox was stopped. He needs to have on pneumatic devices or SCDs. If anticoagulation is desired he must be monitored very closely due to his low platelets. Dictated by JANNETTE Johnson for Laron Brewster MD cc: Laron Brewster MD [facility]
[2019-07-14] MEDS ORDERED: LIPOSYN 20% 250 ML IV SCH (18:00)
[2019-07-14] MEDS ORDERED: [UNRECOGNIZED DRUG - OTHER] IV SCH ×7 (18:00)
[2019-07-14] MEDS ORDERED: POTASSIUM CHLORIDE IV SCH ×7 (18:00)
[2019-07-14] MEDS ORDERED: TPN ELECTROLYTES IV SCH ×7 (18:00)
[2019-07-14] MEDS ORDERED: MAGNESIUM SULFATE IV SCH ×7 (18:00)
--- NOTE | 2019-07-14 18:35 | NEPHROLOGY CONSULTATION ---
DATE: 07/14/2019 REASON FOR ADMISSION: Pneumonia, respiratory failure. REASON FOR CONSULTATION: Acute kidney injury. CONSULTING PHYSICIAN: Mendez Morales MD HISTORY OF PRESENT ILLNESS: This is a 59-year-old gentleman with a history of daily alcohol use who had been feeling poorly for several weeks. He came into the emergency room with hypotension, blood pressure in the 70s. He was fluid resuscitated. He had imaging which indicated significant hepatic steatosis. Patient was noted to have bilateral pneumonia, pleural effusions and a nonspecific nodule in the left upper lobe. His renal function was normal with a creatinine of 0.9 on admission. It has a slow trend upward and is at 1.5 today. Of note, the patient did undergo CT imaging with IV contrast on July 10. The patient over the last several days has had issues with fluid volumes. He has been receiving albumin and low-dose Lasix, however, and he is still remains about 2 L positive. The patient up until yesterday was still making greater than a liter of urine daily. Yesterday, he made just under 900. He continues with edema to the backs of the legs into his back. His respiratory status has worsened and today is quite short of breath, and most of the information is obtained from the family at the bedside. Of note, he has a sister who is a nurse previously ICU at this hospital and is able to help with his medical history. PAST MEDICAL HISTORY: Depression, dyslipidemia, hypertension, ED. PAST SURGICAL HISTORY: Tonsillectomy. ALLERGIES: None. HOME MEDICATIONS: Rosuvastatin, hydralazine, Norvasc, folic acid, hydrochlorothiazide, Effexor, and Phenergan. FAMILY HISTORY: Noncontributory. SOCIAL HISTORY: He drinks on a daily basis. Report from family anywhere from 2 glasses to greater than a bottle of wine a day. No current tobacco use. REVIEW OF SYSTEMS: Shortness of breath, fatigue, weakness, nausea. PHYSICAL EXAMINATION: Vital Signs: Temperature 99.6 degrees, pulse 98, respiratory rate 22, blood pressure 100/56. Intake 1.7 L, output 900 mL. General: Chronically ill- appearing middle- aged gentleman sitting in bed. He is sitting upright. He is awake. He is able to give some information. HEENT: Normocephalic, atraumatic. KELSY. Neck: Supple. Cardiovascular: Regular rate and rhythm. Pulmonary: He had rhonchi bilaterally. Shallow inspiratory effort. Tachypneic rate. Abdomen: Slightly round. Positive bowel sounds. He does have dependent edema to the flanks, hips, and thighs. Genitourinary: Voiding. Extremities: No pretibial edema but continues with a dependent edema. Integumentary: Skin is warm and dry. Neurologic: Nonfocal. LABORATORY DATA: WBC of 8.8, hemoglobin 9.8, platelets of 32,000. Sodium 129, potassium 3.5, CO2 17, creatinine 1.3. These are yesterday's labs. Today's labs indicate sodium 132, potassium 3.8, CO2 17, creatinine of 1.5, BUN of 34, calcium 7.9, phosphorus 2.6, magnesium 2.1. He has a total bilirubin of 3.3, AST 36, ALT 24, alkaline phosphatase 116, albumin 2.6. His urine had a random sodium yesterday of less than 10. IMAGING: He had a chest CT today. Interval worsening in the bilateral pneumonia, worsening bilateral pleural effusions, small to moderate size. Renal ultrasound: Kidney size is 11.9 cm and 11.2 cm, otherwise no abnormality. ASSESSMENT AND PLAN: 1. Acute kidney injury in the setting of pneumonia, hypotension, intravenous contrast and chronic liver disease. Low FENa. Volume expanded. Continue albumin and lasix. No vasopressor required at this time. High risk for progression. Dictated by JANNETTE Canela for Scotty Coulter MD Face to face encounter, data reviewed, discussed with Fadia Davis on 07/14/19. I agree with the above assessment and plan of care. cc: Scotty Coulter MD [facility]
[2019-07-14] MEDS: CRESTOR PO SCH (20:31)
--- NOTE | 2019-07-14 20:43 | PULMONOLOGY PROGRESS NOTE ---
DATE: 07/14/2019 SUBJECTIVE: The patient is awake and alert. He was fatigued. He has mild shortness of breath. He has ongoing nausea. He has very limited p.o. intake. OBJECTIVE: Vital Signs: The patient has been afebrile for the last 24 hours. Blood pressure 99/63, heart rate 104, respiratory rate 27, oxygen saturation 91% on partial rebreather. HEENT: Pupils are equal and reactive. Oropharynx appears clear but dry. Neck: Supple. Chest: Reveals rhonchi bilaterally. Cardiac: S1-S2. Abdomen: Is soft. Extremities: Reveal +1 peripheral edema. LABORATORIES: CT scan of the thorax reveals increase in small to moderate pleural effusions. Increasing infiltrates in the upper lobes. Sodium 132, potassium 3.8, chloride 100, bicarbonate 17, BUN 34, creatinine 1.5, glucose 136, bilirubin 3.3, total protein 4.5, globulin fraction 2.6, prealbumin less than 3. White blood count 11.1, hemoglobin 10.0, platelet count 31,000. IMPRESSION: A 59-year-old with 1. Bilateral pneumonia. 2. Small to moderate bilateral pleural effusions with a normal ejection fraction. 3. Cholelithiasis. 4. Ongoing nausea. 5. Protein calorie malnutrition. 6. Liver failure and coagulopathy. 7. Mild immunoglobulin deficiency. DISCUSSION: A 59-year-old with problems outlined above. He remains frail. He has a marginal cough effort with some purulent secretions in his bedside basin. He is weak. He might benefit from a bronchoscopy but would likely require ongoing intubation after the procedure. He has significant protein calorie malnutrition. It is not clear whether his ongoing nausea is related to his liver disease and pneumonia or related to extensive cholelithiasis. I did discuss bronchoscopy with the family along with enteral and parenteral feedings. I do not think he will tolerate having the NG tube and tube feedings with his ongoing nausea. I am not convinced he will do well with a bronchoscopy. PLAN: 1. Attempt to repeat sputum culture. 2. Place a PICC line and initiate TPN for severe malnutrition. 3. Continue current antibiotics. 4. Consider bronchoscopy and a HIDA scan with clinical improvement. cc: Tan Steele MD
[2019-07-15] MEDS: ATIVAN IV PRN ×5 (01:21→22:30)
[2019-07-15] MEDS: DUONEB (A & A) INH SCH ×4 (03:43→21:15)
--- NOTE | 2019-07-15 06:36 | Diag Imaging Result Doc PS360 ---
EXAM: CHEST-PORTABLE HISTORY: dyspnea TECHNIQUE: Single view COMPARISON: 07/14/2019 FINDINGS: A right-sided PICC line has been placed. Tip overlies the right atrium. There are bilateral infiltrates similar to the prior exam. No cardiomegaly. There is a small left pleural effusion with basilar atelectasis. IMPRESSION: No interval improvement Electronically signed by Carlos Aranda 07/15/2019 6:33 AM
[2019-07-15 06:48] LABS: INR 2.13; PROTIME 24.3 Seconds (11.0-16.0)
[2019-07-15 07:17] LABS: ALB/GLOB RATIO 1.5; ALBUMIN 2.7 g/dL (3.5-5.0); MAGNESIUM 2.4 mg/dL (1.5-2.7); PHOSPHORUS 3.1 mg/dL (2.7-4.5); POTASSIUM 3.4 mmol/L (3.5-5.1); TOTAL BILIRUBIN 3.36 mg/dL (0.20-1.00); TOTAL PROTEIN 4.5 g/dL (6.3-8.3)
[2019-07-15 07:18] LABS: BASO# 0.03 X1000 (0.0-0.2); BASO% 0.3 % (0.0-0.8); EOS# 0.14 X1000 (0.0-0.7); EOS% 1.3 % (0.0-10.0); HEMOGLOBIN 9.4 g/dL (14.0-18.0); IMM GRAN# 0.11 X1000 (0.0-0.04); LYMPH# 0.66 X1000 (1.2-3.4); LYMPH% 5.9 % (20.5-51.1); MCH 27.9 PG (27-31); MCHC 32.4 g/dL (33-37); MCV 86.1 FL (81-99); MONO% 20.6 % (1.7-9.3); NEUT# 7.91 X1000 (1.4-6.5); NEUT% 70.9 % (42.2-75.2); PLT 26 X1000 (130-400); RBC 3.37 XMIL (4.7-6.1); RDW 15.9 % (11.5-14.5); WBC 11.15 X1000 (4.8-10.8)
[2019-07-15 07:21] LABS: BANDS 8 % (0-1); LYMPHS 6 % (21-51); MONO 6 % (1-9); SEGS 78 % (42-75)
[2019-07-15 07:22] LABS: LARGE PLATELETS 1+
[2019-07-15 07:57] LABS: URINE SOURCE CATH
--- NOTE | 2019-07-15 07:59 | PROGRESS NOTE ---
DATE: 07/15/2019 SUBJECTIVE: The patient seems to be worse compared with yesterday. He is still following commands and answering some of my questions, but he is on the BiPAP machine right now. He is short of breath and has generalized weakness. His kidney function is getting worse. The urine output is around 700, even though he has been getting albumin and Lasix. X-ray about the same compared with yesterday. PICC line has been placed. OBJECTIVE: Vital Signs: Temperature 98.3 degrees, pulse 107, respiratory rate 29, blood pressure 100/61, oxygen saturation 94% on the BiPAP machine. HEENT: Head normocephalic. No trauma. PERRLA. Neck: Supple. I do not see JVD. Central trachea. Chest: Decreased breath sounds globally. Coarse breath sounds, mostly at the bases. Some crepitus and rhonchi bilaterally. Crackles at the bases. Abdomen: Soft, protuberant. Positive bowel sounds. He does have abdominal wall edema, mostly to the sides. Extremities: There is 2+ to 3+ lower extremity edema all the way up to the thigh. No clubbing. No cyanosis. Neurological: The patient is sleepy, but arousable. It is really hard to understand what he says because he is on the BiPAP machine, but he is following commands. LABORATORY DATA: WBC 11.1, hemoglobin 9.4, hematocrit 29, platelets 26,000. Sodium 129, potassium 3.4, chloride 97, bicarbonate 14, BUN 47, creatinine 2, glucose 153, calcium 8. AST 34, ALT 22, alkaline phosphatase 96, albumin 2.7. ASSESSMENT AND PLAN: 1. Sepsis due to left lower lobe pneumonia. Blood pressure mainly in the 100s. Continue broad- spectrum antibiotics. Pulmonary Department on board. 2. Pulmonary edema. Even though this patient has been getting Lasix and albumin, he is not voiding too much. He has fluid overload, likely anasarca. Kidney function getting worse. 3. Acute kidney injury. Nephrology Department on board. Kidney function is getting worse, even though he is getting albumin and Lasix. 4. Left lower lobe pneumonia. Continue broad-spectrum antibiotics. 5. Cholelithiasis. Will continue to monitor for now. 6. Hypoxemic respiratory failure, likely due to a combination of pneumonia and pulmonary edema. 7. Electrolyte imbalance. We will monitor for now. 8. Nonspecific left upper lobe nodule. Will monitor. 9. Likely depression. Continue to monitor. 10. Type 2 diabetes with a new hemoglobin A1c of 6.8. Will monitor. 11. Alcohol abuse. This patient basically drinks every day. He stopped drinking 2 weeks ago or so. He drinks somewhere between half a bottle to a bottle of wine daily, and probably per the , he drinks more during the day. Probably he also drinks some beers. Will continue with daily cessation education. 12. Protein calorie malnutrition. Will continue with the same management. 13. Mild immunoglobulin deficiency. Aware. Will monitor for now. 14. Thrombocytopenia. The platelet count has been slowly going down. No signs of bleeding so far. 15. Coagulopathy. Probably this is related to some liver dysfunction. We will just keep an eye on this. CRITICAL CARE TIME: 37 minutes. cc: Mendez Morales MD
[2019-07-15 08:10] LABS: BILIRUBIN URINE NEGATIVE (NEGATIVE); BLOOD URINE NEGATIVE (NEGATIVE); COLOR YELLOW; GLUCOSE URINE NEGATIVE (NEGATIVE); KETONE URINE TRACE mg/dL (NEGATIVE); LEUKOCYTES URINE NEGATIVE (NEGATIVE); NITRITE URINE NEGATIVE (NEGATIVE); PROTEIN URINE 50 mg/dL (NEGATIVE); SP GRAVITY URINE 1.017; TURBIDITY URINE CLEAR (CLEAR); UROBILINOGEN URINE NORMAL (NORMAL)
[2019-07-15 08:31] LABS: UR EPITHELIAL CELLS <10 /HPF (<10); URINE BACTERIA NEGATIVE /HPF; URINE RBC <10 /HPF (<10); URINE WBC <10 /HPF (<10)
[2019-07-15 08:33] LABS: URINE YEAST NONE SEEN
[2019-07-15] MEDS: ZYVOX 600 MG/D5W 600 MG/300 ML IVPB IV SCH (08:34)
[2019-07-15] MEDS: MAXIPIME 2 GM/NS 2 GM/100 ML IVPB IV SCH (08:36)
[2019-07-15] MEDS: ALBUMIN 25% IV SCH (08:36)
[2019-07-15 08:44] LABS: ALLEN TEST YES; BE -9.8 mmoll (-3.0-3.0); BLOOD TYPE ARTERIAL; HCO3-(ACT) 17.3 mmoll (20.0-26.0); METHB 1.5 % (0.0-1.5); O2(CT) 13.3 mL/dL (15.0-23.0); PCO2(98.6) 20 mmHg (35-45); PO2(98.6) 77 mmHg (60-100); SAMPLE BLOOD; SAO2 97.9 % (95.0-100.0); THB 9.9 g/dL (11.5-17.4); pH(98.6) 7.42 (7.35-7.45)
[2019-07-15 08:45] LABS: MODALITY BI PAP
[2019-07-15 08:59] LABS: INR 2.03; PROTIME 23.4 Seconds (11.0-16.0)
[2019-07-15 09:00] LABS: PTT 48.6 Seconds (22.3-41.8)
[2019-07-15] MEDS: VITAMIN B-1 PO SCH (10:00)
[2019-07-15] MEDS: FOLIC ACID PO SCH (10:00)
[2019-07-15] MEDS: EFFEXOR PO SCH (10:00)
[2019-07-15] MEDS: MIRALAX PO SCH (10:03)
[2019-07-15] MEDS ORDERED: ULTRAM PO ONE (10:58)
[2019-07-15] MEDS: SODIUM CHLORIDE 0.9% INJ SCH (13:37)
[2019-07-15] MEDS: PROTONIX IV SCH (13:37)
--- NOTE | 2019-07-15 14:35 | PROVIDER PROGRESS NOTE ---
Progress Note Subjective: He continues to complain of shortness of breath and no appetite. He denies nausea or vomiting. Objective: temperature 99.1, pulse 104, respirations 30, blood pressure 104/64, 02 sat 93% on bipap. General: ill appearing white male lying in bed in no acute distress. HEENT: normocephalic, atraumatic. Pupils equal and reactive. Mucous membranes dry. Trachea midline. Skin: warm and dry. Neck: supple, JVD observed with hepatojugular reflux. Cardiovascular: S1S2. Tachycardic rate and rhythm. No murmur or gallop noted. Respiratory: lungs coarse rhonchi anteriorly. Abdomen: soft, nontender, nondistended. Active bowel sounds noted. : non inspected Extremities: 2+ pitting Edema up to thighs Neurological: drowsy, oriented to person and place. Labs: WBC 11.15, hemoglobin 9.4, hematocrit 29.0, platelet count 26, sodium 129, potassium 3.4, chloride 97, carbon dioxide 14, BUN 47, creatinine 2.0, calcium 8.0, phosphorus 3.1, albumin 2.7. Plasma lactate 4.2. Intake 2025, output 1000. Impression: Acute kidney injury. Likely related to acute tubular necrosis from sepsis, hypotension, and IV contrast. His BUN and Creatinine continue to rise. He does not meet requirements for urgent renal replacement therapy at this time. We will monitor closely. Blood pressure. Stable. PRN vasopresser in place Fluid volume. Expanded. No pulmonary edema. Anemia. Stable. Thrombocytopenia. Defer to primary. Anion gap acidosis. Likely lactic acid and renal failure related. Nutrition. Lipids and TPN started. Monitor CMP.
[2019-07-15] MEDS: ULTRAM PO PRN ×2 (15:06→23:45)
[2019-07-15] MEDS: MERREM 2 GM in NS 50 ML IV SCH (16:58)
[2019-07-15] MEDS ORDERED: D10W 1,000 ML IV SCH (17:00)
[2019-07-15] MEDS ORDERED: LIPOSYN 20% 250 ML IV SCH (18:00)
[2019-07-15] MEDS ORDERED: TPN ELECTROLYTES IV SCH ×7 (18:00)
[2019-07-15] MEDS ORDERED: POTASSIUM CHLORIDE IV SCH ×7 (18:00)
[2019-07-15] MEDS ORDERED: MAGNESIUM SULFATE IV SCH ×7 (18:00)
[2019-07-15] MEDS ORDERED: [UNRECOGNIZED DRUG - OTHER] IV SCH ×7 (18:00)
--- NOTE | 2019-07-15 18:38 | INFECTIOUS DISEASE PROGRESS NO ---
DATE: 07/15/2019 PRESENT ILLNESS: Mr. Sánchez is being treated for a bilateral pneumonia. There is also pulmonary edema, as well as an acute kidney injury with a decrease in his GFR. There is also significant thrombocytopenia in a patient with history of alcohol abuse. MEDICATIONS: Today is day 3 of treatment with Zyvox 600 mg IV every 12 hours and day 5 of treatment with cefepime 2 g IV every 12 hours. PHYSICAL EXAMINATION: Vital Signs: Temperature is 98.1 degrees, pulse rate 119, respiratory rate 22, blood pressure 124/74. O2 saturation is 93% on 100% non-rebreather. General: This is a chronically ill-appearing, middle-aged gentleman. He is lying in the bed with his eyes closed. He is not following commands and nonverbal at this time. He is moving his upper extremities and pulling at his sheets. HEENT: Atraumatic, normocephalic. Conjunctivae are pale. I was unable to visualize the oral vestibule. Neck: Supple. Trachea is midline. Respiratory: Lung sounds have coarse rhonchi and scattered rales noted bilaterally with periods of tachypnea noted. There is mild work of breathing. Cardiovascular: Heart rate and rhythm are regular and fast, sinus tachycardia on the monitor. Abdomen: Soft and round. Does not appear to be tender on palpation. Bowel sounds are active. Integumentary: Skin is warm and dry. There is a PICC line in place to his right upper arm. The site is without edema, erythema, or drainage. LABORATORY AND X-RAY: Today his white count is 11.15, hemoglobin 9.4, platelet count 26,000. His pH is 7.42, pCO2 20, PO2 77 on a 70% BiPAP this morning. Creatinine is 2 with a GFR of 34. Total bilirubin is 3.36, AST 34, ALT 22, alkaline phosphatase 96. A urinalysis showed less than 10 WBCs and negative for urine bacteria. He has had a set of blood cultures drawn this morning which are preliminary. There is an uncollected sputum culture order, and an order has been put in for blood work and chest x-ray in the morning. Chest x-ray today shows no improvement with bilateral infiltrates similar to the prior exam. ASSESSMENT AND PLAN: Mr. Sánchez has bilateral pneumonia as well as pulmonary edema and acute kidney injury. There is a significant thrombocytopenia. I have spoken with Dr. Chavira, and we will discontinue the Zyvox and cefepime at this time. Instead, we will start him on renally dosed meropenem at 2 g IV every 12 hours. He has had hatch cultures ordered for today and a chest x-ray for in the morning. I have spoken with his family and there is concern for decreased mentation today. For now, Dr. Chavira and I want to try him on the meropenem as a single agent to see how he responds. COMORBIDITIES: For Mr. Sánchez include alcohol abuse, diabetes mellitus and protein calorie malnutrition. Dictated by JANNETTE Miranda for Frederic Pineda MD cc: Frederic Pineda MD, Ran Carroll MD [facility]ENTER[facility]
--- NOTE | 2019-07-15 20:03 | PULMONOLOGY PROGRESS NOTE ---
DATE: 07/15/2019 SUBJECTIVE: Patient responds to voice. He has mild increased work of breathing. OBJECTIVE: Vital Signs: The patient has been afebrile for the last 24 hours. Blood pressure 104/64, heart rate 104, respiratory rate 30, oxygen saturation 93%. HEENT: Pupils are equal and reactive. Oropharynx appears clear. Neck: Is supple. Chest: Reveals decreased breath sounds both lung bases. Cardiac: S1-S2. Abdomen: Is soft. Extremities: Are without edema. LABORATORIES: White blood count 11.15, hemoglobin 9.4 platelet count 26,000. Arterial blood gas reveals a pH of 7.42, pCO2 of 20, PO2 of 77 with a lactate of 3.8. Sodium 129, potassium 3.4, chloride 97, bicarbonate 14, anion gap 18, BUN 47, creatinine 2.0 bilirubin 3.36, albumin 2.7, pre- albumin less than 3. Chest x-ray reveals bilateral infiltrates without change. There is no new microbiology data. IMPRESSION: A 59-year-old with 1. Bilateral pneumonia. 2. Pleural effusions with normal ejection fraction. 3. Cholelithiasis. 4. Ongoing nausea. 5. Protein calorie malnutrition. 6. Liver failure with coagulopathy. 7. Mild immunoglobulin deficiency. PLAN: 1. Continue TPN. 2. Continue antibiotics. 3. Continue oxygen or BiPAP for respiratory failure. 4. GI consultation to discuss liver function. cc: Tan Steele MD
[2019-07-15] MEDS: CRESTOR PO SCH (22:31)
[2019-07-16] MEDS: DUONEB (A & A) INH SCH ×4 (03:25→21:24)
[2019-07-16] MEDS: ATIVAN IV PRN ×4 (03:39→15:55)
[2019-07-16 04:49] LABS: ALLEN TEST YES; BE -13.1 mmoll (-3.0-3.0); BLOOD TYPE ARTERIAL; HCO3-(ACT) 14.7 mmoll (20.0-26.0); METHB 1.3 % (0.0-1.5); O2(CT) 13.3 mL/dL (15.0-23.0); O2HB 96.9 % (95.0-99.0); PCO2(98.6) 23 mmHg (35-45); PO2(98.6) 123 mmHg (60-100); SAMPLE BLOOD; SAO2 99.8 % (95.0-100.0); THB 9.6 g/dL (11.5-17.4); pH(98.6) 7.31 (7.35-7.45)
[2019-07-16 04:58] LABS: MODALITY BI PAP
[2019-07-16] MEDS: MERREM 2 GM in NS 50 ML IV SCH (05:34)
[2019-07-16 06:39] LABS: BASO# 0.04 X1000 (0.0-0.2); BASO% 0.3 % (0.0-0.8); EOS# 0.14 X1000 (0.0-0.7); EOS% 0.9 % (0.0-10.0); HEMATOCRIT 28.2 % (42.0-52.0); IMM GRAN# 0.18 X1000 (0.0-0.04); IMM GRAN% 1.2 % (0.0-0.5); LYMPH# 1.51 X1000 (1.2-3.4); LYMPH% 9.8 % (20.5-51.1); MCH 28.1 PG (27-31); MCHC 31.9 g/dL (33-37); MCV 88.1 FL (81-99); MONO# 3.74 X1000 (0.11-0.59); MONO% 24.2 % (1.7-9.3); NEUT# 9.83 X1000 (1.4-6.5); NEUT% 63.6 % (42.2-75.2); RDW 16.5 % (11.5-14.5); WBC 15.44 X1000 (4.8-10.8)
--- NOTE | 2019-07-16 06:39 | Diag Imaging Result Doc PS360 ---
CHEST-PORTABLE - 07/16/2019 INDICATION: dyspnea COMPARISON: 07/15/2019 FINDINGS: Stable right PICC line in good position. Stable dense heterogeneous bilateral infiltrates, worst in the right upper lobe and left lung base. Stable small left basilar pleural effusion. Heart size remains normal. IMPRESSION: No change from prior. Electronically signed by Marvel Payne 07/16/2019 6:36 AM
[2019-07-16 06:40] LABS: PLT 22 X1000 (130-400)
[2019-07-16 06:50] LABS: ALB/GLOB RATIO 1.6; ALBUMIN 2.8 g/dL (3.5-5.0); CALCIUM 8.1 mg/dL (8.8-10.2); CREATININE 2.8 mg/dL (0.7-1.2); MAGNESIUM 2.8 mg/dL (1.5-2.7); PHOSPHORUS 4.6 mg/dL (2.7-4.5); TOTAL BILIRUBIN 3.47 mg/dL (0.20-1.00); TOTAL PROTEIN 4.6 g/dL (6.3-8.3)
[2019-07-16] MEDS ORDERED: LEVAQUIN 750 MG/D5W 750 MG/150 ML IVPB IV ONE (08:31)
--- NOTE | 2019-07-16 08:33 | PROGRESS NOTE ---
DATE: 07/16/2019 SUBJECTIVE: The patient seems to be worse compared with yesterday. He is not following commands today for me. He was able to open his eyes and grimacing with pain stimulation. He is on the BiPAP machine. He is tachypneic and tachycardic. His blood pressure has been mostly in the 90s and 100s. His kidney function is getting worse. Yesterday, we switched the antibiotics to meropenem. I talked to his by phone. I explained to her the new situation. I explained to her that likely this patient will be placed on dialysis and probably he will end up on mechanical ventilation, which I believe is going to be the next step for this patient. Pulmonary department as well as nephrology department, hematology/oncology department on board. OBJECTIVE: Vital Signs: Temperature 98.1 degrees, pulse 107, respiratory rate 27, blood pressure 90/47, oxygen saturation 98 on the BiPAP machine, 70% FiO2. HEENT: Head normocephalic. No trauma. PERRLA. Neck: Supple. I do not see JVD. Central trachea. Chest: Decreased breath sounds globally with coarse breath sounds and rhonchi bilaterally. Crackles at the bases. Abdomen: Soft, protuberant. Some abdominal wall edema to the sides. Extremities: There is 2 to 3+ lower extremity edema all the way up to the thigh. No clubbing, no cyanosis. Neurological Examination: The patient is lethargic but he is able to open his eyes and grimacing with pain stimulation. He is not following commands for me. Laboratory: WBC 15.4, hemoglobin 9, hematocrit 28.2, platelets 22,000. Sodium 135, potassium 4, chloride 101, bicarbonate 13, BUN 66, creatinine 2.8, glucose 173, calcium 8.1, phosphorus 4.6, albumin 2.8. ASSESSMENT AND PLAN: 1. Sepsis due to bilateral pneumonia. Blood pressure has been mostly in the 90s and 100s. We will continue with meropenem and I will probably add levofloxacin to his medications. Pulmonary department on board. Likely, this patient will need to be intubated. 2. Hypoxemic respiratory failure, likely a combination of pneumonia and pulmonary edema. Continue with the same management. Likely, he will need to be intubated. 3. Fluid overload. This is multifactorial also due to acute kidney injury, protein calorie malnutrition, hypoalbuminemia. I do believe the best next step would be dialysis on this patient. CT scan showed pulmonary edema and also bilateral infiltrates. 4. Acute kidney injury. It is not getting better. Nephrology department on board. Kidney function is getting worse. Likely, he will need to be dialyzed. 5. Type 2 diabetes with a new hemoglobin A1c of 6.8. As per the , he has never been diagnosed with diabetes but based on the protocol, this patient's hemoglobin A1c is 6.8 and he may have diabetes. As per the , the hemoglobin A1c has been slowly going up for some time now. 6. Severe protein calorie malnutrition. Continue with the same management for now. 7. Thrombocytopenia. Platelet count has been slowly going down. No signs of bleeding so far. Hematology/oncology following this patient. 8. Likely liver failure with coagulopathy. This is likely related to alcohol abuse, sepsis, hypotension. We will continue to monitor this closely. A consult with gastroenterology department has been requested. 9. Mild immunodeficiency. Aware. We will monitor for now. 10. Alcohol abuse. This patient basically drinks every day. He stopped drinking 2 or 3 weeks ago. He drinks somewhere between have a bottle to a bottle of wine daily and probably, per the , he drinks more during the day and also probably he drinks some beer also. I have been doing daily cessation education but, at this point, he is lethargic. 11. Likely depression. Continue to monitor. 12. Nonspecific left upper lobe nodule. We will monitor. 13. Electrolyte imbalance. We will monitor for now. 14. Cholelithiasis. We will continue to monitor for now. No intervention. No signs of cholecystitis. 15. Overall, his prognosis is poor due to his multiple comorbidities, alcohol abuse, pneumonia, protein calorie malnutrition, and worsening respiratory and kidney function. I do believe the next step probably will be intubation and dialysis. I will add levofloxacin to his medications to see if that helps a little bit more. His platelet count is 22,000. Hematology/oncology on board. I do not think he needs to be getting platelets at this moment. I talked to the today by phone. I explained to her the whole situation. We will continue doing everything for this patient. CRITICAL CARE TIME: 45 minutes. cc: Mendez Morales MD
[2019-07-16] MEDS: ALBUMIN 25% IV SCH (08:43)
[2019-07-16] MEDS: EFFEXOR PO SCH (09:36)
[2019-07-16] MEDS: VITAMIN B-1 PO SCH (09:37)
[2019-07-16] MEDS: FOLIC ACID PO SCH (09:37)
[2019-07-16] MEDS: MIRALAX PO SCH (09:37)
[2019-07-16] MEDS ORDERED: AMIDATE IV ONE (09:50)
[2019-07-16] MEDS ORDERED: QUELICIN IV ONE (09:50)
[2019-07-16] MEDS ORDERED: AMIDATE ONE (09:56)
[2019-07-16] MEDS ORDERED: QUELICIN ONE (09:57)
[2019-07-16] MEDS ORDERED: SOLU-CORTEF IV ONE (10:30)
[2019-07-16] MEDS: MORPHINE IV PRN ×3 (10:48→15:55)
--- NOTE | 2019-07-16 10:57 | Diag Imaging Result Doc PS360 ---
CHEST-PORTABLE - 07/16/2019 10:36 AM INDICATION: ETT placement- post intubation COMPARISON: 5:15 AM FINDINGS: There is an endotracheal tube in good position at T4. Stable right PICC line in good position. There is significant worsening in the diffuse bilateral predominantly alveolar infiltrates. There are prominent curly B lines in the right lung base. Heart size remains top normal. IMPRESSION: Good endotracheal tube placement. Electronically signed by Marvel Payne 07/16/2019 10:55 AM
--- NOTE | 2019-07-16 11:04 | INFECTIOUS DISEASE PROGRESS NO ---
DATE: 07/16/2019 PRESENT ILLNESS: Mr. Sánchez has bilateral pneumonia. Today, he has been intubated and put on the mechanical ventilator. There is also pulmonary edema and an acute kidney injury. He also has thrombocytopenia and coagulopathy with possible liver failure. Today there is an increase in his leukocytosis. MEDICATIONS: Yesterday, he was started on meropenem 2 grams IV every 12 hours, and has also been started on Levaquin IV today, which he will receive every other day as a renally modified dose. PHYSICAL EXAMINATION: Vital Signs: Temperature is 97.1 degrees, pulse rate 103, respiratory rate 20, blood pressure 93/53, O2 saturation is 93% on 100% FiO2 on the mechanical ventilator. General: This is a critically ill-appearing, middle-aged gentleman. He is lying in the bed, sedated on the mechanical ventilator. HEENT: Atraumatic, normocephalic. Oral mucous membranes are pink and dry. Conjunctivae are pale. Sclerae are icteric. There is an oral ET tube in place. Respiratory: Decreased breath sounds bilaterally with coarse rhonchi in the upper lobes. No work of breathing is noted. He is currently not breathing over the set rate on the ventilator. Cardiovascular: Heart rate and rhythm are regular and fast, sinus tachycardia on the monitor. Abdomen: Soft and round with audible bowel sounds. Integumentary: Skin is warm and dry with a PICC line to the right upper arm. The site is without edema, erythema, or drainage. He has 1+ to 2+ pitting edema noted to all 4 extremities. IMAGING AND LABORATORY DATA: Today, his white count is 15.44, hemoglobin 9, platelet count 22,000. PH is 7.31, pCO2 of 23, PO2 of 123 on a 70% BiPAP earlier this morning. Creatinine is 2.8. GFR 23. Total bilirubin is 3.47, direct bilirubin 2, GGT 33, AST 46, ALT 24, alkaline phosphatase 75. Sputum culture and blood cultures are pending. Chest x-ray from this morning shows no change in the dense heterogenous bilateral infiltrates, which are worse in the right upper lobe and left lung base. ASSESSMENT AND PLAN: Mr. Sánchez has bilateral pneumonia and leukocytosis. There is also an acute kidney injury with significant thrombocytopenia and possible liver failure. Yesterday, he was started on meropenem, which we will continue, but I have decreased that dose due to his decrease in glomerular filtration rate. He will now get meropenem 1 gram intravenously every [address] Chavira has started Levaquin. I have spoken to him, and he agrees with also adding doxycycline 100 mg intravenously every 12 hours in order to provide methicillin- resistant staphylococcus aureus coverage. We will continue to watch for culture results as they become available. COMORBIDITIES: for Mr. Sánchez include alcohol abuse, diabetes mellitus, and protein calorie malnutrition. Dictated by JANNETTE Miranda for Frederic Pineda MD cc: Frederic Pineda MD, Ran Carroll MD [facility]
[2019-07-16] MEDS: DOXYCYCLINE 100 MG in NS 250 ML IV SCH ×2 (11:29→22:38)
[2019-07-16 12:02] LABS: ALLEN TEST YES; BE -15.9 mmoll (-3.0-3.0); BLOOD TYPE ARTERIAL; HCO3-(ACT) 12.5 mmoll (20.0-26.0); METHB 0.4 % (0.0-1.5); O2(CT) 12.1 mL/dL (15.0-23.0); O2HB 96.7 % (95.0-99.0); PCO2(98.6) 41 mmHg (35-45); PO2(98.6) 96 mmHg (60-100); SAMPLE BLOOD; SRATE 20 BPM; THB 8.8 g/dL (11.5-17.4); TVOL 500 mL
[2019-07-16 12:05] LABS: MODALITY VENTILATOR
[2019-07-16] MEDS ORDERED: SODIUM BICARBONATE 8.4% 150 MEQ in D5W 1,000 ML IV SCH (13:30)
[2019-07-16] MEDS: PROTONIX IV SCH (13:41)
[2019-07-16] MEDS: SODIUM CHLORIDE 0.9% INJ SCH (13:41)
[2019-07-16] MEDS ORDERED: DIPRIVAN 1% 1,000 MG/100 ML BOTTLE IV SCH (16:15)
[2019-07-16] MEDS: SODIUM BICARBONATE 8.4% 150 MEQ in D5W 1,000 ML IV SCH ×2 (16:26→18:00)
[2019-07-16 16:38] LABS: ALLEN TEST NO; BE -19.5 mmoll (-3.0-3.0); BLOOD TYPE ARTERIAL; METHB 1.1 % (0.0-1.5); O2(CT) 12.4 mL/dL (15.0-23.0); O2HB 96.9 % (95.0-99.0); PCO2(98.6) 29 mmHg (35-45); PO2(98.6) 117 mmHg (60-100); SAMPLE BLOOD; SAO2 99.9 % (95.0-100.0); SRATE 18 BPM; THB 8.9 g/dL (11.5-17.4); TVOL 600 mL
[2019-07-16 16:44] LABS: HCO3-(ACT) 9.7 mmoll (20.0-26.0); MODALITY VENTILATOR; pH(98.6) 7.09 (7.35-7.45)
--- NOTE | 2019-07-16 16:47 | HEMO/ONC PROGRESS NOTE ---
DATE: 07/16/2019 SUBJECTIVE: The patient remains in the ICU. He is very difficult to wake in the mornings. This morning he still had his BiPAP mask on. He would moan to my touch and saying his name but would not open his eyes. The patient had no significant events overnight. OBJECTIVE: Vital Signs: Temperature 98.9 degrees, pulse rate 124, respiratory rate 18, blood pressure 105/62, O2 saturation 94% on mechanical ventilation at 70% O2 flow. The patient has an F3 faces scale. PHYSICAL EXAMINATION: General: The patient appears very ill. Cardiovascular: Tachycardic rate and rhythm. Respiratory: Decreased breath sounds throughout with coarse rhonchi in the upper lobes. Normal respiratory effort on BiPAP machine currently. Abdomen: Protuberant, soft, nontender. Extremities: He has pitting edema to the lower extremities. Neurological: The patient remains lethargic, is difficult to awake. Follow commands this morning. He has a PICC line to the right upper arm. HEENT: Sclera is icteric. PERRLA. Oral mucosa is dry. LABORATORY DATA: WBCs 15.44, hemoglobin 9.0, hematocrit 28.2, platelet count 22,000 ANC 9.83. Sodium 135, creatinine 2.8, BUN 66, calcium 8.1, phosphorus 4.6, magnesium 2.8, total bilirubin 3.47, direct bilirubin 2.0, ammonia less than 10, plasma lactate 4.1, IgG serum slightly low at 682. RADIOLOGY: This morning's chest x-ray shows heterogeneous bilateral infiltrates, worse in the right upper lobe and left lung base. A 2nd chest x-ray shows ET tube is in good position. ASSESSMENT AND PLAN: 1. Thrombocytopenia. His thrombocytopenia continues to be multifactorial, likely peripheral or immune destruction due to his severe sepsis. The patient will need a transfusion for platelet count of 20,000 or less or if he is bleeding. The patient is pretty low today. In the event he gets a platelet transfusion, we request a platelet count exactly 1 hour after his transfusion to evaluate for ITP. We are following peripherally. 2. Sepsis due to left lower lobe pneumonia. The patient was intubated today due to worsening respiratory status. Continue medical management and Pulmonology. 3. Alcohol abuse. This is certainly a contributor to his thrombocytopenia. Looks like the patient is having some symptoms of liver failure as well. 4. Acute kidney injury. Nephrology is following the patient. His kidney function does not appear to be improving. He is volume overloaded at this time. 5. Severe protein calorie malnutrition. See The patient is now getting TPN. He has got a dedicated PICC line. 6. Deep venous thrombosis prophylaxis. Continue to monitor the patient closely for DVT. He needs to have on pneumatic devices or SCDs. Dictated by JANNETTE Johnson for Laron Brewster MD cc: Laron Brewster MD
[2019-07-16] MEDS ORDERED: MERREM 1 GM in NS 50 ML IV SCH (17:00)
--- NOTE | 2019-07-16 17:09 | PROVIDER PROGRESS NOTE ---
Progress Note Subjective: Pt is not responding to verbal stimuli. No family at bedside at the moment. Objective: temperature 97.1, pulse 108, respirations 20, blood pressure 111/67, 02 sat 95% on bipap. General: ill appearing white male lying in bed in no acute distress. HEENT: normocephalic, atraumatic. Pupils equal and reactive. Sluggish. Mucous membranes dry. Trachea midline. Skin: warm and dry. Neck: supple, JVD observed with hepatojugular reflux. Cardiovascular: S1S2. Tachycardic rate and rhythm. No murmur or gallop noted. Respiratory: lungs coarse rhonchi anteriorly. Abdomen: soft, nontender, nondistended. Active bowel sounds noted. : non inspected Extremities: 2+ pitting Edema up to thighs Neurological: obtunded. Labs: WBC 15.44, hemoglobin nine, hematocrit 22, platelet count 22, sodium 135, potassium 4.0, chloride 101, carbon dioxide 13, BUN 66, creatinine 2.8. Albumin 2.8. Intake 1977, output 665. Impression: Acute kidney injury. Likely related to acute tubular necrosis from sepsis, hypotension, and IV contrast. His BUN and Creatinine continue to rise. However, currently he does not meet criteria for urgent renal replacement therapy at this time. We anticipate he will require RAGMAN soon. We will monitor closely. Blood pressure. Low to Stable. PRN vasopresser ordered. Fluid volume. Expanded. Lasix on board Anemia. Stable. Thrombocytopenia. Defer to primary. Anion gap acidosis. Likely lactic acid and renal failure related. Developing respiratory acidosis. Likely will need the ventilator. Nutrition. Lipids and TPN started. Monitor CMP. Medication review. Solu-Cortef, doxycycline, meropenem, levaquin started.
[2019-07-16] MEDS ORDERED: TPN ELECTROLYTES IV SCH ×4 (18:00)
[2019-07-16] MEDS ORDERED: M V I IV SCH ×4 (18:00)
[2019-07-16] MEDS ORDERED: SOLU-CORTEF IV SCH (18:00)
[2019-07-16] MEDS ORDERED: [UNRECOGNIZED DRUG - OTHER] IV SCH ×4 (18:00)
[2019-07-16] MEDS ORDERED: STERILE WATER INJ. INJ SCH (18:00)
[2019-07-16] MEDS ORDERED: AMINOSYN IV SCH ×4 (18:00)
--- NOTE | 2019-07-16 18:03 | PULMONOLOGY PROGRESS NOTE ---
DATE: 07/16/2019 INTERIM HISTORY: The patient was poorly responsive. He had increased work of breathing. He was no longer adequately controlling his airway. He was semi-electively intubated this morning by Anesthesia prior to my arrival. He is having mild patient ventilator desynchrony. OBJECTIVE: Vital Signs: Blood pressure 112/67, heart rate 128, respiratory rate 18, oxygen saturation 95%. HEENT: Pupils are equal. Mild jaundice noted. Oropharynx appears dry. Neck: Supple. Chest: Reveals coarse rhonchi bilaterally. Cardiac: Exam increased rate. Regular rhythm. Abdomen: Soft with no bowel sounds present. Extremities: Without edema. LABORATORIES: Chest x-ray reveals endotracheal tube in good position. There was bilateral infiltrates. Sodium 135, potassium 4.0, chloride 101, bicarbonate 13, BUN 66, creatinine 2.8, bilirubin 3.47, total protein 4.6, globulin fraction has dropped to 1.8. Arterial blood gas reveals pH 7.10, pCO2 of 41, PO2 of 96 with a lactate of 4.7. IMPRESSION: A 59-year-old with: 1. Bilateral pneumonia. 2. Pleural effusions. 3. Cholelithiasis. 4. Protein calorie malnutrition. 5. Chronic liver disease with coagulopathy and hyperbilirubinemia. 6. Mild immunoglobulin deficiency. 7. Acute hypoxemic and acute hypercapnic respiratory failure. PLAN: 1. Initiate mechanical ventilation (this has been completed). 2. Continue TPN. 3. Continue antibiotics. 4. Fluid bolus with sodium bicarbonate. 5. Consider tube feeds. Placement of NG tube will carry some risk due to his thrombocytopenia. Time spent in critical care management: 1 hour and 30 minutes for the day. cc: Tan Steele MD [facility]
[2019-07-16] MEDS ORDERED: NS 500 ML IV ONE (18:32)
[2019-07-16] MEDS ORDERED: NORCURON ONE (18:54)
[2019-07-16] MEDS ORDERED: NIPRIDE 100 MG in D5W 250 ML IV SCH (19:00)
[2019-07-16] MEDS ORDERED: NIMBEX 80 MG in NS 160 ML IV SCH (19:15)
[2019-07-16 19:16] LABS: BASO# 0.04 X1000 (0.0-0.2); BASO% 0.2 % (0.0-0.8); HEMATOCRIT 24.2 % (42.0-52.0); HEMOGLOBIN 7.3 g/dL (14.0-18.0); MCH 27.8 PG (27-31); MCHC 30.2 g/dL (33-37); PLT 16 X1000 (130-400); RBC 2.63 XMIL (4.7-6.1); RDW 16.9 % (11.5-14.5); WBC 24.01 X1000 (4.8-10.8)
[2019-07-16] MEDS: NIMBEX 80 MG in NS 160 ML IV SCH (19:47)
--- NOTE | 2019-07-16 20:00 | GASTROENTEROLOGY CONSULTATION ---
DATE: 07/16/2019 REASON FOR CONSULTATION: Elevated liver function tests. HISTORY OF PRESENT ILLNESS: This is a 59-year-old male who was admitted to the hospital on 07/07/2019. Information is obtained from the chart and also the patient's , who was at the bedside. At the time of my visit the patient had just been intubated. He was sedated. Per records, prior to his admission he had reported about a 3-week history of fatigue, weakness, decreased appetite, chills but no reported fever, cough but nonproductive. He had diagnosis of pneumonia and probable sepsis. He has had decline in his status. He has had acute kidney injury, following with Nephrology. They have not planned for dialysis at the present time. Imaging studies and lab work were reviewed. Today his total bilirubin is 3.47, GGT 33, AST 46, ALT 24, alkaline phosphatase 78. Ammonia less than 10. The patient has had an abdominal ultrasound on admission that showed cholelithiasis and hepatic steatosis. At that time the common bile duct was noted to be normal in diameter. There was a 1.8 cm hepatic cyst noted. PAST MEDICAL HISTORY: Hypertension, hyperlipidemia, peripheral artery disease, depression and alcohol use, drinking a bottle of wine every day. PAST SURGICAL HISTORY: Tonsillectomy, sinus surgery. ALLERGIES: No known drug allergies. HOME MEDICATIONS: Norvasc 5 mg daily, folic acid 1 mg daily, hydrochlorothiazide 12.5 mg daily, hydroxyzine 25 mg every 6 hours as needed, Phenergan 25 mg 3 times a day as needed, Crestor 10 mg every night, Effexor 75 mg daily. SOCIAL HISTORY: He is . He drinks a bottle of wine every day. Apparently last alcohol use was about 3 weeks ago, about 2 weeks prior to his admission. FAMILY HISTORY: Heart disease and diabetes. REVIEW OF SYSTEMS: Per history of present illness. PHYSICAL EXAMINATION: Vital signs: Temperature 98.9 degrees, pulse 124, respirations 18, blood pressure 105/62. Generally the patient was just intubated. He is now on mechanical ventilation. He had been sedated. Respiratory with coarse breath sounds/rhonchi present. Abdomen is soft. Maybe some distention noted. Neurologically, sedated at this time, lethargic. The patient has just been intubated. Extremities with edema noted. LABORATORY DATA: Hematology: WBC 15.44, hemoglobin 9.0, hematocrit 28.2, MCV 88.1, platelets 22,000. Pro time 23.4, INR 2.03, PTT 48.6. Chemistry: Sodium 135, potassium 4.0, chloride 101, CO2 is 13, BUN 66, creatinine 2.8, glucose 173, calcium 8.1, phosphorus 4.6, magnesium 2.8, total bilirubin 3.47, direct bilirubin 2.0, GGT 33, AST 46, ALT 24, alkaline phosphatase 78. DIAGNOSTIC DATA: Abdominal ultrasound on 07/07/2019 showed cholelithiasis; common bile duct was noted to be normal in diameter; findings suggest hepatic steatosis. Abdomen and pelvis CT scan showed cyst in the liver; splenomegaly; pleural effusions; diverticulosis. ASSESSMENT AND PLAN: 1. Sepsis. Continue sepsis protocol. 2. Pneumonia. Continue current management. 3. Respiratory failure. The patient has been intubated and is now on mechanical ventilation. 4. Acute kidney injury, following with Nephrology. 5. Elevated bilirubin, most likely related to intrahepatic cholestasis. No evidence of hepatocellular injury at this time. No evidence of liver failure at this moment. We will continue to follow. GGT was normal. AST, ALT essentially normal. Alkaline phosphatase normal. Elevated bilirubin. We will continue to follow. Synthetic functioning of the liver is compromised due to other medical issues. Continue supportive care. Further plans to be made as needed. Thank you for this consultation. I have discussed this case with Dr. Singer. Dictated by JANNETTE Garcia for Armin Singer MD cc: JANNETTE Denny MD
[2019-07-16 20:15] LABS: BANDS 10 % (0-1); EOS 1 % (1-10); LYMPHS 3 % (21-51); MONO 5 % (1-9); NRBC 7 % (0-0); SEGS 73 % (42-75)
[2019-07-16] MEDS ORDERED: PITRESSIN IV SCH (20:15)
[2019-07-16] MEDS: CRESTOR PO SCH (20:15)
[2019-07-16 20:16] LABS: ANISOCYTOSIS 1+; HYPOCHROM 2+
[2019-07-16] MEDS ORDERED: PITRESSIN 40 UNIT in NS 100 ML IV SCH (20:30)
[2019-07-16 20:58] LABS: ALLEN TEST YES; BE -19.6 mmoll (-3.0-3.0); BLOOD TYPE ARTERIAL; HCO3-(ACT) 9.7 mmoll (20.0-26.0); METHB 1.2 % (0.0-1.5); O2(CT) 10.9 mL/dL (15.0-23.0); O2HB 97.1 % (95.0-99.0); PCO2(98.6) 34 mmHg (35-45); PO2(98.6) 130 mmHg (60-100); SAMPLE BLOOD; SAO2 100.4 % (95.0-100.0); SRATE 25 BPM; THB 7.8 g/dL (11.5-17.4); TVOL 600 mL
[2019-07-16 21:00] LABS: MODALITY VENTILATOR
[2019-07-16 21:01] LABS: pH(98.6) 7.05 (7.35-7.45)
[2019-07-16] MEDS ORDERED: LEVOPHED 16 MG in D5 1/2 NS 250 ML IV SCH (22:00)
[2019-07-17] MEDS: NIMBEX 80 MG in NS 160 ML IV SCH (01:34)
[2019-07-17] MEDS: DUONEB (A & A) INH SCH (03:30)
[2019-07-17 05:21] VITALS: BP 135/91
[2019-07-18] MEDS ORDERED: LEVAQUIN 500 MG/D5W 500 MG/100 ML IVPB IV SCH (08:45)
--- NOTE | 2019-07-19 13:51 | DISCHARGE SUMMARY ---
ADMISSION DATE: 07/07/2019 DISCHARGE DATE: 07/17/2019 DISCHARGE DIAGNOSES: 1. Septic shock with multiorgan failure. 2. Bilateral multifocal pneumonia. 3. Hypoxemic respiratory failure. 4. Fluid overload. 5. Acute kidney injury. 6. Severe protein calorie malnutrition. 7. Thrombocytopenia. 8. Likely liver failure with coagulopathy. 9. Mild immunodeficiency. 10. Likely depression. 11. Nonspecific left upper lobe nodule. 12. Electrolyte imbalance. 13. Cholelithiasis. 14. Alcohol abuse. 15. Hypercarbic respiratory failure. CONSULTS: 1. Hematology/Oncology Department, Dr. Brewster. 2. Pulmonary Department, Dr. Steele. 3. Gastroenterology Department, Dr. Singer. 4. Nephrology Department, Dr. Coulter. PROCEDURES PERFORMED: 1. Abdomen ultrasound dated 07/07/2019, impression: Cholelithiasis, suggestion of hepatic steatosis. 2. Chest x-ray dated 07/07/2019, impression: Trace left pleural effusion and adjacent atelectasis and/or infiltrate at the lung of the left lung base. 3. Chest CT scan dated 07/07/2019, impression: Bilateral pleural effusions, bilateral atelectasis versus pneumonia, nonspecific left upper lobe nodule, lucent hepatic lesions of uncertain significance, cholelithiasis. 4. Chest x-ray dated 07/08/2019, impression: Pneumonia, particularly in the left lower lobe. 5. Chest x-ray dated 07/09/2019, impression: Atelectasis versus pneumonia, particularly in the left base. 6. Chest x-ray chest x-ray dated 07/18/2019, impression: Essentially stable chest, no big changes compared with the previous one. 7. Abdomen and pelvis CT scan dated 07/18/2019, impression: Tiny appearing cyst of the liver, splenomegaly, slight worsening pleural effusion, diverticulosis coli. 8. Chest x-ray dated 07/11/2019, impression: Mild interval improvement. 9. Chest x-ray dated 07/12/2019, impression: Interval worsening. 10. Chest x-ray dated 07/13/2019, impression: Some decrease in bilateral infiltrates/edema. 11. Chest x-ray dated 07/14/2019, impression: Interval worsening. 12. Chest CT scan dated 07/14/2019, impression: Interval worsening in the bilateral pneumonia. 13. Chest x-ray dated 07/15/2019, impression: No interval improvement. 14. Chest x-ray dated 07/16/2019, impression: Good endotracheal tube placement. HOSPITAL COURSE: 59-year-old male with past medical history of hypertension, hyperlipidemia, possible peripheral arterial disease, depression, also he has a strong history of alcohol use and abuse. Apparently he has been drinking at least somewhere between half a bottle to a bottle every night and probably also beer or more wine during the day, during the night he was drinking mostly wine, he was admitted on 07/07/2019. He reported that for 3 weeks he was feeling weak with intermittent chills, apparently no fever, decreased appetite, nausea, and then a week later he developed cough and shortness of breath, he came in to the ER because he was feeling weak and basically lethargic and he noticed that his blood pressure for the last couple days prior to admission was low, around 70/30, and even though he was hypotensive, he was taking his blood pressure medications, amlodipine and hydrochlorothiazide. He denied any vomiting, diarrhea, or blood loss. No recent change in his home medications, but again, he has been taking his antihypertensive medications despite having low blood pressure, he was transferred to the medical floor and even though he was bolused with some fluids, his blood pressure was still low and he was feeling more short of breath, laboratory showed a normal white blood cell count initially, but also he was hyponatremic with some acute kidney injury, hypochloremic, low bicarb at 18, low albumin level, high plasma lactate and thrombocytopenic with an initial platelet count of 63,000. He was placed on antibiotics but despite this, he was getting worse. He started having some fever especially a couple days after admission with a temperature noted to be at 102.1. We rotated the antibiotics and also requested an evaluation by the Infectious Disease doctor, initial CT scan showed bilateral pleural effusion, pneumonia versus atelectasis, a left upper lobe nodule and lucent hepatic lesions of uncertain significance, his kidney function actually got better a couple days later and since this patient still was having fever and chills despite the antibiotics and he has some lucent lesions in the abdomen, we needed to rule out any kind of abscess formation or any other pathology that can explain his symptoms as well. New CT abdomen done on 07/10/2019 showed a slight worsening pleural effusion, diverticulosis coli, splenomegaly and tiny appearing cyst in the liver so we basically ruled out any kind of abscess or any other problem in the abdomen other than splenomegaly that can actually explain the thrombocytopenia as well, during the course of this hospitalization including the beginning of this hospitalization, this patient seems to be really depressed, to the point that he hesitated when we ask him if he wants to be resuscitated or be do not resuscitate, he presented with protein calorie malnutrition and probably this is related to his alcohol abuse. Like I mentioned before, he was drinking at least half a bottle to a bottle of wine every single night for years and also he was probably drinking beer or wine during the day. He was all not only abdomen. He was also hypoalbuminemic, thrombocytopenic and on top of the protein calorie malnutrition, I did a immunoglobulin level and this came back on 07/13/2019 and it looks like his IgG level was a low at 682, this patient was slowly having more problems breathing and with fluid overload. Also, we noticed that this patient started having low blood pressure, so he was transferred at the beginning of this hospitalization to the ICU to restart this patient on vasopressors as needed, he was getting more hypoxemic and with more pleural effusion during the course of this hospitalization multiple subspecialties evaluated this patient, especially the Pulmonary Department/intensive care doctor, Nephrology Department, Hematology/Oncology Department and at the end, Gastroenterology came on board, but his breathing and the extension of the pneumonia was getting worse despite giving him more treatment and covering him with more broad-spectrum antibiotics. Initially he was on a nasal cannula, then non- rebreathing mask, Ventimask, and then at the end he was on the BiPAP machine, he was extremely weak and also at the end of this hospitalization basically he was unresponsive. He was poorly responsive, he had increased work of breathing. He was no longer controlling his airway adequately, and he was intubated on 07/16/2019, the same day, he continued to be tachypneic. He was placed on pressors but his oxygen saturation dropped significantly. He was on 100% FiO2 on mechanical ventilation. His oxygen saturation was somewhere in the between the 50s and 70s, we also noticed that this patient was having bright red blood coming out from the tube. He was transfused with FFP and platelets since they were low at 16, the platelet count. At some point during the night, the family requested to stop having and at some point during the day. The Pulmonary Critical Care doctor had multiple conversations with the family, he was placed Do Not Resuscitate. The vasopressors were stopped as well as the sedation, TPN, and propofol, and again Dr. Steele was notified, at 5:56 a.m. pulse was absent and checked by two RNs. The patient was on asystole on the monitor and he was pronounced at 5:56 on 07/17/2019. cc: Mendez Morales MD MTDD
== END 2019-07-17 05:56 | disposition expired | DRG 871 ==
LOC: ED 15:23 → 3N 21:19 → SUATTDRO 21:19 → ICU 07-08 20:27
PROVIDERS: ATTEND Internal Medicine